=== PATIENT | female | born 1965 | race American Indian/Alaskan Native ===

== ENCOUNTER 2018-08-21 20:45 | Emergency (ER) | payer MEDICARE ==
[2018-08-21 22:07] LABS: Hematocrit 44.2 % (30.3-42.9); Hemoglobin 15.3 gm/dl (10.1-14.3); Mean Corpuscular HGB Conc 35 % (30-34); Mean Corpuscular Volume 85 fl (79-97); Platelet Count 264 K/mm3 (140-440); Red Cell Distribution Width 14.2 % (13.2-15.2)
[2018-08-21 22:34] LABS: Albumin 4.3 g/dL (3.9-5); Calcium 9.3 mg/dL (8.4-10.2)
[2018-08-21 22:56] LABS: Basophils % (Manual) 0 % (0.0-1.8); Total Cells Counted 100
[2018-08-21 22:57] LABS: Anisocytosis Few
--- NOTE | 2018-08-21 23:13 | XRay Report ---
FINAL REPORT EXAM: XR KNEE 3V LT HISTORY: fall TECHNIQUE: Three views of the left knee PRIORS: None. FINDINGS: The bones are normally aligned and mineralized. There is no evidence of acute fracture or subluxation . There is prominent patellar osteophyte formation and mild narrowing of the patellofemoral joint. Ther e is moderate narrowing of the medial joint with associated osteophyte formation. The lateral joint a ppears well preserved. The soft tissues are unremarkable. IMPRESSION: 1. No evidence of acute fracture or subluxation 2. Osteoarthrosis of the patellofemoral and medial joints
--- NOTE | 2018-08-21 23:56 | Emergency Department Report ---
ED General Adult HPI - General Chief complaint: Abdominal Pain Stated complaint: ABDOMINAL PAIN Time Seen by Provider: 08/21/18 23:55 Source: patient Mode of arrival: Ambulatory Limitations: No Limitations - History of Present Illness Initial comments: 52 y.o. female with history of schizophrenia, bipolar disorder, anxiety, and PTSD presents with a complaint of abdominal pain. Patient also complains of nausea and vomiting. Patient states she has not had a bowel movement in 2 weeks. Patient denies any blood in the stool. Patient denies any fever. Patient complains of abdominal cramping. Patient states he is taken no mass or abdominal pain. Persisted last episode of vomiting was 7 PM. Patient denies any hematemesis. Patient also complains of left knee pain stating that she had a fall in injured her knee while in the waiting room. - Related Data Previous Rx's Medication Instructions Recorded Last Taken Type Gabapentin [Neurontin] 600 mg PO TID #90 tablet 08/22/18 Unknown Rx Ondansetron (Nf) [Zofran TAB] 4 mg PO Q8HR PRN #20 tablet 08/22/18 Unknown Rx levETIRAcetam [Keppra TAB] 1,500 mg PO BID #60 tablet 08/22/18 Unknown Rx traMADol [Ultram] 50 mg PO Q6HR PRN #20 tablet 08/22/18 Unknown Rx Allergies Allergy/AdvReac Type Severity Reaction Status Date / Time morphine Allergy Anaphylaxis Verified 08/21/18 21:45 ED Review of Systems ROS: Stated complaint: ABDOMINAL PAIN Other details as noted in HPI Constitutional: denies: chills, fever Eyes: denies: eye pain, eye discharge, vision change ENT: denies: ear pain, throat pain Respiratory: denies: cough, shortness of breath, wheezing Cardiovascular: denies: chest pain, palpitations Endocrine: no symptoms reported Gastrointestinal: abdominal pain, nausea, vomiting. denies: diarrhea Genitourinary: denies: urgency, dysuria, discharge Musculoskeletal: denies: back pain, joint swelling, arthralgia Skin: denies: rash, lesions Neurological: headache. denies: weakness, paresthesias Psychiatric: denies: anxiety, depression Hematological/Lymphatic: denies: easy bleeding, easy bruising ED Past Medical Hx - Past Medical History Hx Diabetes: Yes Hx Seizures: Yes Hx Psychiatric Treatment: Yes (schizo, bipolar, anxity, PTSD, depression) Additional medical history: Neuropathy - Surgical History Past Surgical History?: No - Social History Smoking Status: Heavy Tobacco Smoker - Medications Home Medications: Home Medications Medication Instructions Recorded Confirmed Last Taken Type Gabapentin [Neurontin] 600 mg PO TID #90 tablet 08/22/18 Unknown Rx Ondansetron (Nf) [Zofran TAB] 4 mg PO Q8HR PRN #20 tablet 08/22/18 Unknown Rx levETIRAcetam [Keppra TAB] 1,500 mg PO BID #60 tablet 08/22/18 Unknown Rx traMADol [Ultram] 50 mg PO Q6HR PRN #20 tablet 08/22/18 Unknown Rx ED Physical Exam - General Limitations: No Limitations General appearance: alert, other (minimal distress; uncomfortable) - Head Head exam: Present: atraumatic, normocephalic - Eye Eye exam: Present: normal appearance - ENT ENT exam: Present: mucous membranes moist - Neck Neck exam: Present: normal inspection - Respiratory Respiratory exam: Present: normal lung sounds bilaterally. Absent: respiratory distress - Cardiovascular Cardiovascular Exam: Present: regular rate, normal rhythm. Absent: systolic murmur, diastolic murmur, rubs, gallop - GI/Abdominal GI/Abdominal exam: Present: soft, normal bowel sounds, other (tender diffusely in abdomen). Absent: guarding, rebound - Extremities Exam Extremities exam: Present: normal inspection, other (tender to palpation of right knee with full ROM; no stepoff deformity; No erythema or ecchymosis) - Back Exam Back exam: Present: normal inspection - Neurological Exam Neurological exam: Present: alert, oriented X3 - Psychiatric Psychiatric exam: Present: normal affect, normal mood - Skin Skin exam: Present: warm, dry, intact, normal color. Absent: rash ED Course Vital Signs 08/21/18 08/21/18 08/22/18 21:32 21:39 00:00 Temperature 99.0 F 99 F Pulse Rate 105 H 105 H 102 H Respiratory 16 16 25 H Rate Blood Pressure 135/78 135/78 121/79 Blood Pressure [Left] O2 Sat by Pulse 100 99 100 Oximetry 08/22/18 08/22/18 00:03 01:00 Temperature 98.3 F Pulse Rate 105 H 102 H Respiratory 17 25 H Rate Blood Pressure 124/88 Blood Pressure 121/79 [Left] O2 Sat by Pulse 100 Oximetry ED Medical Decision Making - Lab Data Result diagrams: 08/21/18 21:50 08/21/18 21:50 - Medical Decision Making Patient received Ultram for pain while in the ER. Patient received Zofran therapy as well as [place] therapy and tolerated this well without complication. Patient's pain improved and CT shows no acute pathology. Patient to be discharged to follow up with PCP. - Differential Diagnosis Bowel obstruction; UTI; Dehydration; Anemia; Critical care attestation.: If time is entered above; I have spent that time in minutes in the direct care of this critically ill patient, excluding procedure time. ED Disposition Clinical Impression: Abdominal pain, Knee contusion Disposition: TO HOME OR SELFCARE Is pt being admited?: No Does the pt Need Aspirin: No Condition: Stable Instructions: Abdominal Pain (ED), Knee Pain (ED) Prescriptions: Gabapentin [Neurontin] 600 mg PO TID #90 tablet levETIRAcetam [Keppra TAB] 1,500 mg PO BID #60 tablet Ondansetron (Nf) [Zofran TAB] 4 mg PO Q8HR PRN #20 tablet PRN Reason: vomiting traMADol [Ultram] 50 mg PO Q6HR PRN #20 tablet PRN Reason: Pain
[2018-08-22] LABS: Bilirubin,Urine NEG (Negative); Blood,Urine NEG (Negative); Color,Urine Straw (Yellow); Mucus,Urine FEW /HPF; Protein,Urine <15 mg/dL mg/dL (Negative); RBC,Urine < 1.0 /HPF (0.0-6.0); Urobilinogen,Urine < 2.0 mg/dL (<2.0); WBC,Urine < 1.0 /HPF (0.0-6.0)
[2018-08-22] MEDS ORDERED: ULTRAM PO ONE ×2 (00:50→00:59)
[2018-08-22] MEDS ORDERED: NACL 0.9% 1000 ML 1,000 ML IV ONE (00:51)
[2018-08-22 01:01] VITALS: BP 124/88
[2018-08-22] MEDS ORDERED: PERCOCET 5/325 PO STA (01:56)
[2018-08-22] MEDS ORDERED: ZOFRAN IV ONE (01:57)
[2018-08-22] MEDS ORDERED: ZOFRAN ONE (02:00)
--- NOTE | 2018-08-22 02:05 | Cat Scan Report ---
FINAL REPORT PROCEDURE: CT ABDOMEN PELVIS WO CON TECHNIQUE: Computerized axial tomography of the abdomen and pelvis was performed without intravenous contrast. This study is performed without intravascular contrast material and its sensitivity for ab dominal and pelvic pathology, including neoplasms, inflammation, abscess, free fluid, thrombosis, art erial dissection and infarction, is reduced compared with a contrast enhanced study. HISTORY: abdominal pain COMPARISON: No prior studies are available for comparison. FINDINGS: Visualized lower thorax: No significant abnormality. Liver: Normal size and attenuation. Spleen: Normal size and attenuation. Gallbladder and biliary system: Normal. Pancreas: Normal. Adrenals: Normal. Kidneys: There are no kidney stones or ureteral stones. There is no hydronephrosis.. GI tract: There is no bowel obstruction, colitis or enteritis. The appendix is normal.. Lymph nodes and mesentery: Normal. Vasculature: Normal. Bladder: Normal. Reproductive organs: There are calcified uterine fibroids.. Peritoneum: There is no ascites or free air, abscess or adenopathy.. Musculoskeletal structures: No significant abnormality. Other: None. IMPRESSION: There are no kidney stones or ureteral stones. There is no hydronephrosis.. There is no bowel obstruction, colitis or enteritis. The appendix is normal.. There are calcified uterine fibroids.. There is no ascites or free air, abscess or adenopathy.. .
[2018-08-22] MEDS ORDERED: PERCOCET 5/325 PO ONE (02:26)
[2018-08-22] MEDS ORDERED: PERCOCET 5/325 ONE (05:23)
[2018-08-22] MEDS ORDERED: ULTRAM ONE (05:23)
== END 2018-08-22 03:12 | disposition home or self-care (01) ==
LOC: ED 20:45
DX: S80.02XA Contusion of left knee, initial encounter (principal); R10.9 Unspecified abdominal pain; R11.2 Nausea with vomiting, unspecified; I10 Essential (primary) hypertension; F20.9 Schizophrenia, unspecified; F41.9 Anxiety disorder, unspecified; F43.10 Post-traumatic stress disorder, unspecified; F32.9 Major depressive disorder, single episode, unspecified; F17.200 Nicotine dependence, unspecified, uncomplicated; Z88.6 Allergy status to analgesic agent; W19.XXXA Unspecified fall, initial encounter; Y93.89 Activity, other specified; Y92.89 Other specified places as the place of occurrence of the external cause; Y99.8 Other external cause status
CPT/HCPCS: 36415; 73562; 74176; 80053; 81001; 82962; 85007; 85025; 87086; 96361; 96374; 99284; J2405; J7030

== ENCOUNTER 2019-07-06 17:26 | Emergency (ER) | payer MEDICARE ==
[2019-07-06] MEDS ORDERED: NITROGLYCERIN 0.4 MG TAB SUBL SL ONE (17:42)
[2019-07-06] MEDS ORDERED: ASPIRIN 81 MG TAB CHEW PO ONE (17:42)
[2019-07-06 18:10] LABS: Basophils # (Auto) 0.1 K/mm3 (0.0-0.1); Basophils % (Auto) 0.7 % (0.0-1.8); Eosinophils # (Auto) 0.1 K/mm3 (0.0-0.4); Eosinophils % (Auto) 1.6 % (0.0-4.3); Hematocrit 44.3 % (30.3-42.9); Hemoglobin 14.7 gm/dl (10.1-14.3); Lymphocytes # (Auto) 4.1 K/mm3 (1.2-5.4); Lymphocytes % (Auto) 45.9 % (13.4-35.0); Mean Corpuscular HGB Conc 33 % (30-34); Mean Corpuscular Volume 81 fl (79-97); Monocytes # (Auto) 0.6 K/mm3 (0.0-0.8); Monocytes % (Auto) 6.9 % (0.0-7.3); Platelet Count 273 K/mm3 (140-440); Red Blood Count 5.45 M/mm3 (3.65-5.03); Red Cell Distribution Width 15.8 % (13.2-15.2)
--- NOTE | 2019-07-06 18:12 | XRay Report ---
CHEST 1 VIEW INDICATION / CLINICAL INFORMATION: Chest Pain. COMPARISON: Chest radiograph 01/21/2017 FINDINGS: SUPPORT DEVICES: None. HEART / MEDIASTINUM: No significant abnormality. LUNGS / PLEURA: No significant pulmonary or pleural abnormality. No pneumothorax. IMPRESSION: 1. No acute finding. Signer Name: Fawad Mendoza MD Signed: 07/06/2019 6:07 PM Workstation Name: [id number]
[2019-07-06] MEDS ORDERED: ZIPRASIDONE MESYLATE 20 MG VIAL IM ONE (18:42)
[2019-07-06] MEDS ORDERED: HALOPERIDOL LACTATE 5 MG/1 ML INJ ONE (18:45)
[2019-07-06 18:59] LABS: Alanine Aminotransferase 7 units/L (7-56); Albumin 3.6 g/dL (3.9-5); BUN/Creatinine Ratio 16; Blood Urea Nitrogen 14 mg/dL (7-17); Calcium 9.7 mg/dL (8.4-10.2); Hemolysis Index 29
[2019-07-06 19:42] LABS: Bilirubin,Urine NEG (Negative); Blood,Urine NEG (Negative); Color,Urine Yellow (Yellow); Hyaline Casts,Urine 1 /LPF; Mucus,Urine FEW /HPF; Protein,Urine <15 mg/dL mg/dL (Negative)
[2019-07-06 19:48] LABS: Amphetamine Screen,Urine PRESUMPTIVE NEGATIVE; Benzodiazepines Screen,Urine PRESUMPTIVE NEGATIVE; Cannabinoid Screen,Urine PRESUMPTIVE NEGATIVE; Cocaine Screen,Urine PRESUMPTIVE NEGATIVE; Methadone Screen,Urine PRESUMPTIVE NEGATIVE; Opiate Screen,Urine PRESUMPTIVE NEGATIVE
[2019-07-06] MEDS ORDERED: SODIUM CHLORIDE 0.9% 1000 ML 1,000 ML IV ONE ×2 (22:27)
--- NOTE | 2019-07-06 22:28 | Emergency Department Report ---
<SASHA GIRALDO - Last Filed: 07/06/19 22:51> ED Psych HPI - General Chief Complaint: Chest Pain Stated Complaint: CP/DIZZY Time Seen by Provider: 07/06/19 17:41 Source: patient Mode of arrival: Ambulatory - History of Present Illness Initial Comments: Mrs. Lima is a 53 yo female with hx of schizophrenia, PTSD, seizure, CVA who presents with chest pain generalized weakness today. She became ill at the triage desk. Rushed back to the ED. She had difficulty speaking at that time. ONly stated "stroke" and "seizure". After being reassured that she was stable, Mrs. Saha told staff members "Just let me go. I am going to jump in front of a train. If I leave, I am going to kill myself." She, then, in very frightened manner state "there is a man there. Do not let him hurt me." lives with daughter but does not want her to know where she is MD Complaint: suicidal ideation, other (auditory hallucinations) -: Sudden, This evening Associated Psychiatric Symptoms: suicidal ideation, auditory hallucinations History of same: Yes Quality: constant Improves With: none Worsens With: none Context: other (unknown) Associated Symptoms: headache If Self Harm: has plan - Related Data Previous Rx's Medication Instructions Recorded Last Taken Type Gabapentin [Neurontin] 600 mg PO TID #90 tablet 08/22/18 Unknown Rx Ondansetron (Nf) [Zofran TAB] 4 mg PO Q8HR PRN #20 tablet 08/22/18 Unknown Rx levETIRAcetam [Keppra TAB] 1,500 mg PO BID #60 tablet 08/22/18 Unknown Rx traMADoL [Ultram] 50 mg PO Q6HR PRN #20 tablet 08/22/18 Unknown Rx Allergies Allergy/AdvReac Type Severity Reaction Status Date / Time morphine Allergy Anaphylaxis Verified 08/21/18 21:45 ED Review of Systems Comment: All other systems reviewed and negative Constitutional: malaise. denies: fever Respiratory: denies: shortness of breath Cardiovascular: chest pain Gastrointestinal: denies: abdominal pain Neurological: denies: headache, numbness, paresthesias, abnormal gait, vertigo ED Past Medical Hx - Past Medical History Previous Medical History?: Yes Hx Diabetes: Yes Hx Seizures: Yes Hx Psychiatric Treatment: Yes (schizo, bipolar, anxity, PTSD, depression) Additional medical history: Neuropathy - Surgical History Past Surgical History?: No - Social History Smoking Status: Current Every Day Smoker Substance Use Type: None - Medications Home Medications: Home Medications Medication Instructions Recorded Confirmed Last Taken Type Gabapentin [Neurontin] 600 mg PO TID #90 tablet 08/22/18 Unknown Rx Ondansetron (Nf) [Zofran TAB] 4 mg PO Q8HR PRN #20 tablet 08/22/18 Unknown Rx levETIRAcetam [Keppra TAB] 1,500 mg PO BID #60 tablet 08/22/18 Unknown Rx traMADoL [Ultram] 50 mg PO Q6HR PRN #20 tablet 08/22/18 Unknown Rx ED Physical Exam - General Limitations: Physical Limitation General appearance: alert, in distress (appears anxious, scared, running away from person not in room) - Head Head exam: Present: atraumatic, normocephalic - Eye Eye exam: Present: normal appearance. Absent: scleral icterus, conjunctival injection - ENT ENT exam: Present: mucous membranes moist - Neck Neck exam: Present: normal inspection, full ROM - Respiratory Respiratory exam: Present: normal lung sounds bilaterally. Absent: respiratory distress, wheezes, rales, rhonchi - Cardiovascular Cardiovascular Exam: Present: regular rate, normal rhythm, normal heart sounds. Absent: systolic murmur, diastolic murmur, rubs, gallop - GI/Abdominal GI/Abdominal exam: Present: soft, normal bowel sounds. Absent: distended, tenderness, guarding, rebound - Extremities Exam Extremities exam: Present: normal inspection - Back Exam Back exam: Present: normal inspection - Neurological Exam Neurological exam: Present: alert, oriented X3 - Psychiatric Psychiatric exam: Present: depressed, agitated, suicidal ideation - Skin Skin exam: Present: warm, dry, intact, normal color. Absent: rash ED Medical Decision Making - Lab Data Result diagrams: 07/06/19 17:48 07/06/19 18:15 Laboratory Results - last 24 hr 07/06/19 07/06/19 07/06/19 17:48 17:48 18:15 WBC 9.0 RBC 5.45 H Hgb 14.7 H Hct 44.3 H MCV 81 MCH 27 L MCHC 33 RDW 15.8 H Plt Count 273 Lymph % (Auto) 45.9 H Mccone % (Auto) 6.9 Eos % (Auto) 1.6 Baso % (Auto) 0.7 Lymph # 4.1 Mccone # 0.6 Eos # 0.1 Baso # 0.1 Seg Neutrophils % 44.9 Seg Neutrophils # 4.0 PT 13.1 INR 1.00 APTT 24.0 L D-Dimer 177.92 Sodium 135 L Potassium 4.5 Chloride 99.9 Carbon Dioxide 16 L Anion Gap 24 BUN 14 Creatinine 0.9 Estimated GFR > 60 BUN/Creatinine Ratio 16 Glucose 333 H Calcium 9.7 Total Bilirubin 0.40 AST 13 ALT 7 Alkaline Phosphatase 92 Troponin T < 0.010 Total Protein 7.2 Albumin 3.6 L Albumin/Globulin Ratio 1.0 Urine Color Urine Turbidity Urine pH Ur Specific [place] Urine Protein Urine Glucose (UA) Urine Ketones Urine Blood Urine Nitrite Urine Bilirubin Urine Urobilinogen Ur Leukocyte Esterase Urine WBC (Auto) Urine RBC (Auto) U Epithel Cells (Auto) Hyaline Casts Urine Mucus Urine Opiates Screen Urine Methadone Screen Ur Barbiturates Screen Ur Phencyclidine Scrn Ur Amphetamines Screen U Benzodiazepines Scrn Urine Cocaine Screen U Marijuana (THC) Screen Drugs of Abuse Note 07/06/19 07/06/19 19:25 19:25 WBC RBC Hgb Hct MCV MCH MCHC RDW Plt Count Lymph % (Auto) Mccone % (Auto) Eos % (Auto) Baso % (Auto) Lymph # Mccone # Eos # Baso # Seg Neutrophils % Seg Neutrophils # PT INR APTT D-Dimer Sodium Potassium Chloride Carbon Dioxide Anion Gap BUN Creatinine Estimated GFR BUN/Creatinine Ratio Glucose Calcium Total Bilirubin AST ALT Alkaline Phosphatase Troponin T Total Protein Albumin Albumin/Globulin Ratio Urine Color Yellow Urine Turbidity Slightly-cloudy Urine pH 7.0 Ur Specific [place] 1.013 Urine Protein <15 mg/dl Urine Glucose (UA) >=500 Urine Ketones Tr Urine Blood Neg Urine Nitrite Neg Urine Bilirubin Neg Urine Urobilinogen 2.0 Ur Leukocyte Esterase Neg Urine WBC (Auto) 2.0 Urine RBC (Auto) 3.0 U Epithel Cells (Auto) 14.0 H Hyaline Casts 1 Urine Mucus Few Urine Opiates Screen Presumptive negative Urine Methadone Screen Presumptive negative Ur Barbiturates Screen Presumptive negative Ur Phencyclidine Scrn Presumptive negative Ur Amphetamines Screen Presumptive negative U Benzodiazepines Scrn Presumptive negative Urine Cocaine Screen Presumptive negative U Marijuana (THC) Screen Presumptive negative Drugs of Abuse Note Disclamer - EKG Data 07/06/19 22:40 EKG obtained 1736 1736 Sinus tachycardia rate 120 beats a minute normal axis normal intervals poor R-wave progression in the anterior leads 07/06/19 22:51 Second EKG obtained 1751 Tachycardia rate 110 beats a minute normal axis no ST-T wave changes compared to first EKG - Radiology Data Radiology results: report reviewed cxr:NAP - Medical Decision Making Mrs. Saha initially presents with chest pain. During her evaluation, she ex pressed suicidal intention with repeated intention to jump in front of a pain. Her behavior became to escalate. She had auditiory and visual hallucinations, including a man in the room trying to harm her. She required chemical restraint. After Geodon injection, she was calm, cooperative and insightful. She did not have any physical complaints. I have reviewed labs. She is medically clear for psychiatric care. normal troponin x 2, normal d-dimer. Hyperglycemia addressed with lantus SQ QHS. She did confirm that she has hx of diabetes mellitus. Placed on 1013 involuntary hold. Awaiting treatment recommendations from our psychiatric team. From the presentation, I do not suspect TIA or seizure. AMI ruled out with w/u performed in the ED. Critical Care Time: Yes Critical care attestation.: 40 minutes of critical care time excluding procedures were used use in the care of the patient. I came to the bedside immediately. Patient required multiple interventions and reassessments. ED Disposition Clinical Impression: Suicidal ideation Disposition: [id number]/TX-[id number] ANOTHER TYPE [facility] Condition: Stable Referrals: PRIMARY CARE, [Primary Care Provider] - 3-5 Days <HILARIA KATZ - Last Filed: 07/07/19 11:17> ED Review of Systems ROS: Stated complaint: CP/DIZZY Other details as noted in HPI ED Course Vital Signs 07/06/19 07/06/19 07/06/19 17:59 18:17 20:58 Temperature 98.5 F Pulse Rate 111 H 113 H Respiratory 30 H 18 Rate Blood Pressure 130/78 Blood Pressure 152/103 [Right] O2 Sat by Pulse 100 Oximetry 07/07/19 01:30 Temperature 97.9 F Pulse Rate 100 H Respiratory 18 Rate Blood Pressure Blood Pressure 139/70 [Right] O2 Sat by Pulse 99 Oximetry ED Medical Decision Making - Lab Data Result diagrams: 07/06/19 17:48 07/06/19 18:15 - Medical Decision Making She will be discharged to the [facility] psychiatric unit Critical care attestation.: If time is entered above; I have spent that time in minutes in the direct care of this critically ill patient, excluding procedure time. ED Disposition Is pt being admited?: No Does the pt Need Aspirin: No Time of Disposition: 11:16
[2019-07-06] MEDS ORDERED: INSULIN GLARGINE 100 UNITS/ML SUB-Q SCH (22:36)
[2019-07-07 12:18] VITALS: BP 135/70
== END 2019-07-07 11:35 | disposition other institution (70) ==
LOC: ED 17:26 → EEVIPCON 17:26 → ED 07-07 11:35
DX: R45.851 Suicidal ideations (principal); E11.9 Type 2 diabetes mellitus without complications; F20.9 Schizophrenia, unspecified; F31.9 Bipolar disorder, unspecified; F41.9 Anxiety disorder, unspecified; F17.200 Nicotine dependence, unspecified, uncomplicated; Z79.899 Other long term (current) drug therapy; Z88.6 Allergy status to analgesic agent
CPT/HCPCS: 36415; 71045; 80053; 80307; 81001; 82962; 84484; 85025; 85379; 85610; 85730; 93005; 93010; 96372; 99291; J3486; J1630; J1815

== ENCOUNTER 2019-07-07 10:09 | Inpatient (IN) | payer MEDICARE ==
[2019-07-07] MEDS ORDERED: TIZANIDINE HCL 4 MG PO PRN (10:48)
[2019-07-07] MEDS ORDERED: ALBUTEROL 2.5 MG/3 ML NEBU IH PRN (10:48)
[2019-07-07] MEDS ORDERED: NITROGLYCERIN 0.4 MG TAB SUBL SL SCH (11:00)
[2019-07-07] MEDS ORDERED: tiZANidine TAB 4 MG TAB PO PRN (13:05)
[2019-07-07] MEDS ORDERED: CARBIDOPA PO SCH (14:00)
[2019-07-07] MEDS ORDERED: LEVODOPA PO SCH (14:00)
[2019-07-07 14:33] LABS: Basophils % (Auto) 0.8 % (0.0-1.8); Eosinophils # (Auto) 0.1 K/mm3 (0.0-0.4); Eosinophils % (Auto) 2.1 % (0.0-4.3); Hemoglobin 13.6 gm/dl (10.1-14.3); Lymphocytes # (Auto) 2.5 K/mm3 (1.2-5.4); Lymphocytes % (Auto) 44.3 % (13.4-35.0); Mean Corpuscular HGB Conc 33 % (30-34); Mean Corpuscular Volume 83 fl (79-97); Monocytes # (Auto) 0.4 K/mm3 (0.0-0.8); Monocytes % (Auto) 7.6 % (0.0-7.3); Platelet Count 236 K/mm3 (140-440); Red Blood Count 5.04 M/mm3 (3.65-5.03); Red Cell Distribution Width 16.4 % (13.2-15.2)
[2019-07-07 14:44] LABS: Alanine Aminotransferase 7 units/L (7-56); Albumin 3.8 g/dL (3.9-5); BUN/Creatinine Ratio 22; Blood Urea Nitrogen 20 mg/dL (7-17); Calcium 9.3 mg/dL (8.4-10.2); Chol/HDL Ratio 4.93 %; HDL Cholesterol 45 mg/dL (40-59); Hemolysis Index 11; LDL Cholesterol,Direct 161 mg/dL (50-130)
[2019-07-07] MEDS ORDERED: INSULIN LISPRO 100 UNIT/ML SUB-Q ONE (15:41)
[2019-07-07] MEDS: GABAPENTIN 300 MG CAP PO SCH ×2 (19:02→21:32)
[2019-07-07] MEDS: INSULIN LISPRO 100 UNIT/ML SUB-Q SCH ×3 (19:33→23:45)
[2019-07-07] MEDS: levETIRAcetam 500 MG TAB PO SCH (21:32)
[2019-07-07] MEDS: FAMOTIDINE 20 MG TAB PO SCH (21:32)
[2019-07-07] MEDS ORDERED: LISINOPRIL 40 MG TAB PO SCH (22:00)
[2019-07-07] MEDS ORDERED: NON-FORMULARY EACH (Levetiracetam [Keppra Tab] 1,000 MG) PO SCH (22:00)
[2019-07-07] MEDS ORDERED: DETEMIR SUB-Q SCH (22:00)
[2019-07-07] MEDS ORDERED: INSULIN GLARGINE 100 UNITS/ML SUB-Q SCH (22:00)
--- NOTE | 2019-07-08 07:15 | History and Physical Report ---
GP History & Physical - History of Present Illness Date of admission: 07/07/19 Date of Examination: 07/08/19 Reason for Admission: Severe anxiety/depression History of Present Illness: The patient is 53 year old , disabled female with history of schizophrenia, bipolar, depression, PTSD, and anxiety NURSE NOTES. Patient arrived onto unit via w/c accompanied by 1 nurse and 1 security door installer at 1221. legal status: 1013. per nurse to nurse, patient arrived to ED confused and diaphoresis. patient did not know where she was, c/o chest pain, and collapsed on the floor. patient has a psych hx of schizophrenia, bipolar, depression, PTSD, and anxiety. In my interview with the patient this morning, the patient stated that the reason she was here was because she did not want to live. The patient reported that she had swallowed 4 bottles of pills in an attempt at suicide. The patient stated that she has been without her meds since february, and she hears the voice of a man that follows her around, and tells her to go to the train tracks. She also stated that the she has nightmares every night and can not sleep. The patients stated that she wants to harm herself, but does not want to harm others. PAST PSYCHIATRIC HISTORY: Diagnoses: Schizophrenia, Bipolar, Depression PTSD Anxiety Suicide attempts or Self-harm behavior: 2 Suicide Attempts Prior psychiatric hospitalizations:4 Psychiatric Hospitalizations. Most recent [facility] 2017 Substance Abuse history: NONE Alcohol: NO Tobacco:Smokes 2 cigarettes 4 days a week. PAST MEDICAL /SURGICAL HISTORY: seizures DM Allergies: MORPHINE Family Psychiatric History None reported or documented SOCIAL HISTORY Marital Status: Single Living Arrangements: Lives with her daughter. Employment Status: Retired Access to guns/weapons: No, but stated she wanted one. Education: BS History of Abuse: NONE Legal History: NONE REVIEW OF SYSTEMS Constitutional: Negative for weight loss ENT: Negative for stridor Respiratory: Negative for cough or hemoptysis All other systems reviewed and are negative Legal Status: Voluntary Legal Status: Voluntary Patient Problems: Current Active Problems DVT prophylaxis (Acute) PTSD (post-traumatic stress disorder) (Acute) Schizoaffective disorder, depressive type (Acute) CAD (coronary artery disease) (Chronic) HLD (hyperlipidemia) (Chronic) HTN (hypertension) (Chronic) IDDM (insulin dependent diabetes mellitus) (Chronic) Parkinson disease (Chronic) Peripheral neuropathy (Chronic) Seizure disorder (Chronic) Reaction to Hospitalization: Accepting Medications and Allergies Allergies Allergy/AdvReac Type Severity Reaction Status Date / Time morphine Allergy Anaphylaxis Verified 07/07/19 12:44 Home Medications Medication Instructions Recorded Confirmed Last Taken Type Lisinopril [Zestril] 40 mg PO DAILY 01/17/17 01/17/17 01/15/17 History Nitroglycerin [Nitrostat] 0.4 mg SL Q5M 01/17/17 01/17/17 Unknown History Tizanidine HCl [Zanaflex] 4 mg PO TID PRN 01/17/17 01/17/17 01/15/17 History ALBUTEROL NEB's [Proventil 0.083% 2.5 mg IH Q6H PRN #100 nebu 01/21/17 Unknown Rx NEBS] Aspirin [Aspirin BABY CHEW TAB] 81 mg PO QDAY #100 tab.chew 01/21/17 Unknown Rx AtorvaSTATin [Lipitor] 20 mg PO QHS #30 tablet 01/21/17 Unknown Rx Carbidopa/Levodopa [Rytary ER 1 each PO TID #90 capsule.er 01/21/17 Unknown Rx 23.75 mg-95 mg Cap] Clopidogrel [Plavix] 75 mg PO QDAY #30 tablet 01/21/17 Unknown Rx Detemir (Nf) [Levemir (Nf)] 20 units SUB-Q QHS #5 pen 01/21/17 Unknown Rx FLUoxetine [PROzac] 20 mg PO QDAY #30 capsule 01/21/17 Unknown Rx Famotidine [Pepcid] 20 mg PO BID #60 tablet 01/21/17 Unknown Rx Gabapentin 300 mg PO Q8HR #90 capsule 01/21/17 Unknown Rx Lisinopril [Zestril TAB] 40 mg PO BID #30 tablet 01/21/17 Unknown Rx Metoprolol [Lopressor TAB] 12.5 mg PO DAILY #30 tablet 01/21/17 Unknown Rx Prednisone [predniSONE (Gregorio) ER 20 mg PO QDAY #8 tablet.dr 01/21/17 Unknown Rx TAB] carvediloL [Coreg] 12.5 mg PO BID #60 tablet 01/21/17 Unknown Rx levETIRAcetam [Keppra TAB] 1,000 mg PO BID #60 tablet 01/21/17 Unknown Rx levoFLOXacin [Levaquin] 750 mg PO QDAY #8 tablet 01/21/17 Unknown Rx metFORMIN [Glucophage] 500 mg PO BID #60 tablet 01/21/17 Unknown Rx Gabapentin [Neurontin] 600 mg PO TID #90 tablet 08/22/18 Unknown Rx Ondansetron (Nf) [Zofran TAB] 4 mg PO Q8HR PRN #20 tablet 08/22/18 Unknown Rx levETIRAcetam [Keppra TAB] 1,500 mg PO BID #60 tablet 08/22/18 Unknown Rx traMADoL [Ultram] 50 mg PO Q6HR PRN #20 tablet 08/22/18 Unknown Rx Active Meds: Active Medications Albuterol (Proventil) 2.5 mg IH Q6H PRN PRN Reason: Shortness Of Breath Aspirin (Baby Aspirin) 81 mg PO QDAY [facility] Atorvastatin Calcium (Lipitor) 20 mg PO QHS [facility] Last Admin: 07/07/19 21:32 Dose: 20 mg Documented by: Carvedilol (Coreg) 12.5 mg PO BID [facility] Clopidogrel Bisulfate (Plavix) 75 mg PO QDAY [facility] Famotidine (Pepcid) 20 mg PO BID [facility] Last Admin: 07/07/19 21:32 Dose: 20 mg Documented by: Fluoxetine HCl (Prozac) 20 mg PO QDAY [facility] Gabapentin (Gabapentin) 300 mg PO Q8HR [facility] Last Admin: 07/07/19 21:32 Dose: 300 mg Documented by: Insulin [facility] ([facility]us) [facility] Last Admin: 07/07/19 23:46 Dose: 20 units Documented by: Insulin Human Lispro (Humalog) 0 unit SUB-Q [facility]; Protocol Last Admin: 07/07/19 23:45 Dose: 8 unit Documented by: Levetiracetam (Keppra) 1,000 mg PO BID [facility] Last Admin: 07/07/19 21:32 Dose: 1,000 mg Documented by: Lisinopril (Zestril) 40 mg PO BID [facility] Metoprolol Tartrate (Metoprolol) 12.5 mg PO DAILY [facility] Miscellaneous Medication (Carbidopa/Levodopa [Rytary Er 23.75 Mg-95 Mg Cap]) 1 each PO TID [facility] Nicotine (Habitrol) 7 mg TD QDAY [facility] Nitroglycerin (Nitrostat) 0.4 mg SL Q5M [facility] Prednisone (Deltasone) 20 mg PO QDAY [facility] Tizanidine HCl (Zanaflex) 4 mg PO Q8H PRN PRN Reason: Muscle Spasm Results - Results Labs/Vitals: Laboratory Last Values WBC 5.7 K/mm3 (4.5-11.0) 07/07/19 13:39 RBC 5.04 M/mm3 (3.65-5.03) H 07/07/19 13:39 Hgb 13.6 gm/dl (10.1-14.3) 07/07/19 13:39 Hct 42.0 % (30.3-42.9) 07/07/19 13:39 MCV 83 fl (79-97) 07/07/19 13:39 MCH 27 pg (28-32) L 07/07/19 13:39 MCHC 33 % (30-34) 07/07/19 13:39 RDW 16.4 % (13.2-15.2) H 07/07/19 13:39 Plt Count 236 K/mm3 (140-440) 07/07/19 13:39 Lymph % (Auto) 44.3 % (13.4-35.0) H 07/07/19 13:39 [place] % (Auto) 7.6 % (0.0-7.3) H 07/07/19 13:39 Eos % (Auto) 2.1 % (0.0-4.3) 07/07/19 13:39 Baso % (Auto) 0.8 % (0.0-1.8) 07/07/19 13:39 Lymph # 2.5 K/mm3 (1.2-5.4) 07/07/19 13:39 [place] # 0.4 K/mm3 (0.0-0.8) 07/07/19 13:39 Eos # 0.1 K/mm3 (0.0-0.4) 07/07/19 13:39 Baso # 0.0 K/mm3 (0.0-0.1) 07/07/19 13:39 Seg Neutrophils % 45.2 % (40.0-70.0) 07/07/19 13:39 Seg Neutrophils # 2.6 K/mm3 (1.8-7.7) 07/07/19 13:39 Sodium 131 mmol/L (137-145) L 07/07/19 13:39 Potassium 3.9 mmol/L (3.6-5.0) 07/07/19 13:39 Chloride 93.2 mmol/L (98-107) L 07/07/19 13:39 Carbon Dioxide 23 mmol/L (22-30) D 07/07/19 13:39 Anion Gap 19 mmol/L 07/07/19 13:39 BUN 20 mg/dL (7-17) H 07/07/19 13:39 Creatinine 0.9 mg/dL (0.7-1.2) 07/07/19 13:39 Estimated GFR > 60 ml/min 07/07/19 13:39 BUN/Creatinine Ratio 22 % 07/07/19 13:39 Glucose 535 mg/dL (65-100) H* 07/07/19 13:39 POC Glucose 328 (70-105) H 07/07/19 19:48 Hemoglobin A1c 11.3 % (4-6) H 07/07/19 13:39 Calcium 9.3 mg/dL (8.4-10.2) 07/07/19 13:39 Total Bilirubin < 0.20 mg/dL (0.1-1.2) 07/07/19 13:39 AST 10 units/L (5-40) 07/07/19 13:39 ALT 7 units/L (7-56) 07/07/19 13:39 Alkaline Phosphatase 100 units/L (35-129) 07/07/19 13:39 Total Protein 7.1 g/dL (6.3-8.2) 07/07/19 13:39 Albumin 3.8 g/dL (3.9-5) L 07/07/19 13:39 Albumin/Globulin Ratio 1.2 % 07/07/19 13:39 Triglycerides 193 mg/dL (2-149) H 07/07/19 13:39 Cholesterol 222 mg/dL (50-199) H 07/07/19 13:39 LDL Cholesterol Direct 161 mg/dL (50-130) H 07/07/19 13:39 HDL Cholesterol 45 mg/dL (40-59) 07/07/19 13:39 Cholesterol/HDL Ratio 4.93 % 07/07/19 13:39 Last Vital Signs Temp 98.2 F 07/07/19 20:10 Pulse 84 07/07/19 20:10 Resp 17 07/07/19 20:10 BP 149/82 07/07/19 20:10 Pulse Ox 96 07/07/19 20:10 Physical Examination - Constitutional Vitals: Vital Signs Temp Pulse Resp BP Pulse Ox 98.2 F 84 17 149/82 96 07/07/19 20:10 07/07/19 20:10 07/07/19 20:10 07/07/19 20:10 07/07/19 20:10 Temperature -Last 24 Hours Temperature 98.2 F General appearance: Present: no acute distress, well-nourished - EENT Eyes: Present: PERRL, EOM intact ENT: hearing intact, clear oral mucosa - Neck Neck: Present: supple, normal ROM - Respiratory Respiratory effort: normal, labored Mental Status Exam - Vital signs Last Vital Signs Temp 98.2 F 07/07/19 20:10 Pulse 84 07/07/19 20:10 Resp 17 07/07/19 20:10 BP 149/82 07/07/19 20:10 Pulse Ox 96 07/07/19 20:10 - Exam Orientation: time, place, person Affect: depressed Mood: congruent with affect Thought Process: Intact Perceptions: auditory, command, hallucinations Speech: normal rate and pattern Concentration: focused Motor activity: normal Level of consciousness: alert Memory: Intact Sleep Symptoms: Difficulty Falling Asleep Interaction: cooperative Assessment and Plan - Psychiatric problem (1) Schizoaffective disorder, depressive type Current Visit: Yes Status: Acute plan to address problem: see below (2) PTSD (post-traumatic stress disorder) Current Visit: Yes Status: Acute plan to address problem: Due to the psychiatric conditions and treatment listed in the Assessment and Plan - the patient requires continued hospitalization. Will continue inpatient treatment to allow for medication adjustment and monitoring. Will continue q15 min safety checks. Will encourage the use of environmental modifications and non-pharmacologic ely roaches for the management of behavioral and psychological symptoms. Medication adjustment made today: Start Quetiapine 150mg bid for psychosis and increase Fluoxetine to 40mg qd for depression Will continue current psych medications Monitor for medication side effects. The patient will continue on medications for physical illnesses, and Hospitalist will closely monitor these Continue intensive physical and occupational therapies. Monitor patient's mood, sleep, appetite, and behavior closely. Encourage patient to participate in individual and group therapeutic sessions on the [place]. Will provide a safe and therapeutic environment for patient. Estimated length of stay 7 days Physician Certification - Certification Statement Physician Certification Statement: This is an acknowledgement statement that MARGARITA STRATTON is a 53 year old F who requires inpatient psychiatric admission for treatment which could reasonably be expected to improve the patient's condition for Schizoaffective disorder Estimated period of time patient will need to remain in the hospital: 7 days Plan for post-hospital care: out-patient care
--- NOTE | 2019-07-08 07:21 | Consultation ---
History of Present Illness - Reason for Consult Consult date: 07/07/19 Medical management Requesting physician: BERNA MENDIOLA - History of Present Illness atient arrived onto unit via w/c accompanied by 1 nurse and [address] at 1221. legal status: 1013. per nurse to nurse, patient arrived to ED confused and diaphoresis. patient did not know where she was, c/o chest pain, and collapsed on the floor. patient has a psych hx of schizophrenia, bipolar, depres noemi, PTSD, and anxiety. medical hx of seizures (last one unknown) , DM, and neuropathy. surgical hx for stent insertion. patient reports 5 strokes, 5 heart attacks, and been in a diabetic coma x's 3. she's received flu vaccination last month. personal items inventoried and a bag was sent down to the safe. patiented oriented to unit and unit policy. During my exam patient was calm .Poor Historian.Unable to give much history. I Past History Past Medical History: CAD, diabetes, hypertension, hyperlipidemia, seizures, other (parkinsonism) Past Surgical History: No surgical history Social history: full code Family history: hypertension Medications and Allergies Allergies Allergy/AdvReac Type Severity Reaction Status Date / Time morphine Allergy Anaphylaxis Verified 07/07/19 12:44 Home Medications Medication Instructions Recorded Confirmed Last Taken Type Lisinopril [Zestril] 40 mg PO DAILY 01/17/17 01/17/17 01/15/17 History Nitroglycerin [Nitrostat] 0.4 mg SL Q5M 01/17/17 01/17/17 Unknown History Tizanidine HCl [Zanaflex] 4 mg PO TID PRN 01/17/17 01/17/17 01/15/17 History ALBUTEROL NEB's [Proventil 0.083% 2.5 mg IH Q6H PRN #100 nebu 01/21/17 Unknown Rx NEBS] Aspirin [Aspirin BABY CHEW TAB] 81 mg PO QDAY #100 tab.chew 01/21/17 Unknown Rx AtorvaSTATin [Lipitor] 20 mg PO QHS #30 tablet 01/21/17 Unknown Rx Carbidopa/Levodopa [Rytary ER 1 each PO TID #90 capsule.er 01/21/17 Unknown Rx 23.75 mg-95 mg Cap] Clopidogrel [Plavix] 75 mg PO QDAY #30 tablet 01/21/17 Unknown Rx Detemir (Nf) [Levemir (Nf)] 20 units SUB-Q QHS #5 pen 01/21/17 Unknown Rx FLUoxetine [PROzac] 20 mg PO QDAY #30 capsule 01/21/17 Unknown Rx Famotidine [Pepcid] 20 mg PO BID #60 tablet 01/21/17 Unknown Rx Gabapentin 300 mg PO Q8HR #90 capsule 01/21/17 Unknown Rx Lisinopril [Zestril TAB] 40 mg PO BID #30 tablet 01/21/17 Unknown Rx Metoprolol [Lopressor TAB] 12.5 mg PO DAILY #30 tablet 01/21/17 Unknown Rx Prednisone [predniSONE (Gregorio) ER 20 mg PO QDAY #8 tablet. 01/21/17 Unknown Rx TAB] carvediloL [Coreg] 12.5 mg PO BID #60 tablet 01/21/17 Unknown Rx levETIRAcetam [Keppra TAB] 1,000 mg PO BID #60 tablet 01/21/17 Unknown Rx levoFLOXacin [Levaquin] 750 mg PO QDAY #8 tablet 01/21/17 Unknown Rx metFORMIN [Glucophage] 500 mg PO BID #60 tablet 01/21/17 Unknown Rx Gabapentin [Neurontin] 600 mg PO TID #90 tablet 08/22/18 Unknown Rx Ondansetron (Nf) [Zofran TAB] 4 mg PO Q8HR PRN #20 tablet 08/22/18 Unknown Rx levETIRAcetam [Keppra TAB] 1,500 mg PO BID #60 tablet 08/22/18 Unknown Rx traMADoL [Ultram] 50 mg PO Q6HR PRN #20 tablet 08/22/18 Unknown Rx Active Meds: Active Medications Albuterol (Proventil) 2.5 mg IH Q6H PRN PRN Reason: Shortness Of Breath Aspirin (Baby Aspirin) 81 mg PO QDAY [facility] Atorvastatin Calcium (Lipitor) 20 mg PO QHS [facility] Last Admin: 07/07/19 21:32 Dose: 20 mg Documented by: Carvedilol (Coreg) 12.5 mg PO BID [facility] Clopidogrel Bisulfate (Plavix) 75 mg PO QDAY [facility] Famotidine (Pepcid) 20 mg PO BID [facility] Last Admin: 07/07/19 21:32 Dose: 20 mg Documented by: Fluoxetine HCl (Prozac) 20 mg PO QDAY [facility] Gabapentin (Gabapentin) 300 mg PO Q8HR [facility] Last Admin: 07/07/19 21:32 Dose: 300 mg Documented by: Insulin Glargine (Lantus) 20 units SUB-Q QHS [facility] Last Admin: 07/07/19 23:46 Dose: 20 units Documented by: Insulin Human Lispro (Humalog) 0 unit SUB-Q [facility]; Protocol Last Admin: 07/07/19 23:45 Dose: 8 unit Documented by: Levetiracetam (Keppra) 1,000 mg PO BID [facility] Last Admin: 07/07/19 21:32 Dose: 1,000 mg Documented by: Lisinopril (Zestril) 40 mg PO BID [facility] Metoprolol Tartrate (Metoprolol) 12.5 mg PO DAILY [facility] Miscellaneous Medication (Carbidopa/Levodopa [Rytary Er 23.75 Mg-95 Mg Cap]) 1 each PO TID [facility] Nicotine (Habitrol) 7 mg TD QDAY [facility] Nitroglycerin (Nitrostat) 0.4 mg SL Q5M [facility] Prednisone (Deltasone) 20 mg PO QDAY [facility] Tizanidine HCl (Zanaflex) 4 mg PO Q8H PRN PRN Reason: Muscle Spasm Review of Systems All systems: negative Constitutional: no weight loss, no weight gain, no fever, no chills, no sweats, no night sweats Ears, nose, mouth and throat: no ear pain, no ear discharge, no tinnitis, no decreased hearing, no nose pain, no nasal congestion, no nasal discharge, no sinus pressure, no sinus pain Breasts: deferred Cardiovascular: no chest pain, no orthopnea, no palpitations, no rapid/irregular heart beat, no edema, no syncope Respiratory: no cough, no cough with sputum, no excessive sputum, no hemoptysis, no shortness of breath, no dyspnea on exertion Gastrointestinal: no abdominal pain, no nausea, no vomiting, no diarrhea, no constipation Genitourinary Female: no dysuria, no urinary frequency, no urgency Menstruation: ammenorrhea Rectal: no pain Musculoskeletal: no neck stiffness, no neck pain, no shooting arm pain, no arm numbness/tingling, no low back pain, no shooting leg pain, no leg numbness/tingling, no redness of joints Integumentary: no rash, no pruritis, no redness, no sores, no wounds, no jaundice, no boils, no blisters Neurological: no seizures, no syncope Psychiatric: no suicidal ideation Endocrine: no cold intolerance, no heat intolerance Hematologic/Lymphatic: no easy bruising, no easy bleeding Allergic/Immunologic: no urticaria, no allergic rhinitis, no wheezing Exam - Constitutional Vitals: Temp Pulse Resp BP Pulse Ox 98.2 F 84 17 149/82 96 07/07/19 20:10 07/07/19 20:10 07/07/19 20:10 07/07/19 20:10 07/07/19 20:10 General appearance: Present: no acute distress, well-nourished - EENT Eyes: Present: PERRL ENT: hearing intact, clear oral mucosa - Neck Neck: Present: supple, normal ROM - Respiratory Respiratory effort: normal Respiratory: bilateral: CTA - Cardiovascular Heart rate: 78 Rhythm: regular Heart Sounds: Present: S1 & S2. Absent: rub, click - Extremities Extremities: no ischemia, pulses intact, pulses symmetrical, No edema Peripheral Pulses: within normal limits - Abdominal General gastrointestinal: Present: soft, non-tender, non-distended, normal bowel sounds Female genitourinary: Present: normal - Rectal Rectal Exam: deferred - Integumentary Integumentary: Present: clear, warm, dry - Musculoskeletal Musculoskeletal: gait normal, strength equal bilaterally - Psychiatric Psychiatric: appropriate mood/affect, intact judgment & insight - Neurologic Neurologic: CNII-XII intact, moves all extremities - Allied Health Allied health notes reviewed: nursing, case management Results - Labs CBC & Chem 7: 07/07/19 13:39 07/07/19 13:39 Labs: Abnormal lab results 07/07/19 07/07/19 07/07/19 Range/Units 13:39 13:39 13:39 RBC 5.04 H (3.65-5.03) M/mm3 MCH 27 L (28-32) pg RDW 16.4 H (13.2-15.2) % Lymph % (Auto) 44.3 H (13.4-35.0) % [place] % (Auto) 7.6 H (0.0-7.3) % Sodium 131 L (137-145) mmol/L Chloride 93.2 L (98-107) mmol/L BUN 20 H (7-17) mg/dL Glucose 535 H* (65-100) mg/dL POC Glucose (70-105) Hemoglobin A1c 11.3 H (4-6) % Albumin 3.8 L (3.9-5) g/dL Triglycerides 193 H (2-149) mg/dL Cholesterol 222 H (50-199) mg/dL LDL Cholesterol Direct 161 H (50-130) mg/dL 07/07/19 Range/Units 19:48 RBC (3.65-5.03) M/mm3 MCH (28-32) pg RDW (13.2-15.2) % Lymph % (Auto) (13.4-35.0) % [place] % (Auto) (0.0-7.3) % Sodium (137-145) mmol/L Chloride (98-107) mmol/L BUN (7-17) mg/dL Glucose (65-100) mg/dL POC Glucose 328 H (70-105) Hemoglobin A1c (4-6) % Albumin (3.9-5) g/dL Triglycerides (2-149) mg/dL Cholesterol (50-199) mg/dL LDL Cholesterol Direct (50-130) mg/dL Short CBC 07/07/19 Range/Units 13:39 WBC 5.7 (4.5-11.0) K/mm3 Hgb 13.6 (10.1-14.3) gm/dl Hct 42.0 (30.3-42.9) % Plt Count 236 (140-440) K/mm3 BMP 07/07/19 13:39 Sodium 131 L Potassium 3.9 Chloride 93.2 L Carbon Dioxide 23 D BUN 20 H Creatinine 0.9 Glucose 535 H* Calcium 9.3 Liver Function 07/07/19 Range/Units 13:39 Total Bilirubin < 0.20 (0.1-1.2) mg/dL AST 10 (5-40) units/L ALT 7 (7-56) units/L Alkaline Phosphatase 100 (35-129) units/L Albumin 3.8 L (3.9-5) g/dL Assessment and Plan - Patient Problems (1) IDDM (insulin dependent diabetes mellitus) Current Visit: Yes Status: Chronic Plan to address problem: Uncontrolled Discontinued Lantus and Started on Novolin mix 70/30 25 units bid Also Accucheks achs and high dose sliding scale coverage A1c high in 11's indicating poor control over last few months. (2) HTN (hypertension) Current Visit: Yes Status: Chronic Qualifiers: Hypertension type: essential hypertension Qualified Code(s): I10 - Essential (primary) hypertension Plan to address problem: Cont antihypertensives (3) HLD (hyperlipidemia) Current Visit: Yes Status: Chronic Qualifiers: Hyperlipidemia type: mixed hyperlipidemia Qualified Code(s): E78.2 - Mixed hyperlipidemia Plan to address problem: Cont statins (4) Parkinson disease Current Visit: Yes Status: Chronic Plan to address problem: Cont Sinemet (5) CAD (coronary artery disease) Current Visit: Yes Status: Chronic Qualifiers: Coronary Disease-Associated Artery/Lesion type: [place] artery [place] vs. transplanted heart: kaw heart Associated angina: without angina Qualified Code(s): I25.10 - Atherosclerotic heart disease of [place] coronary artery without angina pectoris Plan to address problem: Cont Plavix (6) Seizure disorder Current Visit: Yes Status: Chronic Plan to address problem: Cont Keppra (7) Peripheral neuropathy Current Visit: Yes Status: Chronic Qualifiers: Peripheral neuropathy type: polyneuropathy, unspecified Qualified Code(s): G62.9 - Polyneuropathy, unspecified Plan to address problem: Cont Gabapentin (8) DVT prophylaxis Current Visit: Yes Status: Acute Plan to address problem: On Heparin and GI prophlaxis
[2019-07-08] MEDS ORDERED: traMADol 50 MG TAB PO PRN (08:00)
[2019-07-08] MEDS ORDERED: INSULIN GLARGINE 100 UNITS/ML SUB-Q SCH (10:00)
[2019-07-08] MEDS ORDERED: FLUoxetine 20 MG CAP PO SCH (10:00)
[2019-07-08] MEDS ORDERED: PREDNISONE 20 MG PO SCH (10:00)
[2019-07-08] MEDS: GABAPENTIN 300 MG CAP PO SCH ×3 (10:06→22:37)
[2019-07-08] MEDS: FAMOTIDINE 20 MG TAB PO SCH ×2 (10:07→22:38)
[2019-07-08] MEDS: levETIRAcetam 500 MG TAB PO SCH ×2 (10:07→22:24)
[2019-07-08] MEDS: CLOPIDOGREL 75 MG TAB PO SCH (10:07)
[2019-07-08] MEDS: ASPIRIN 81 MG TAB CHEW PO SCH (10:07)
[2019-07-08] MEDS: INSULIN NPH/REGULAR 70/30 INJ SUB-Q SCH ×2 (10:08→18:23)
[2019-07-08] MEDS: traMADol 50 MG TAB PO PRN ×2 (10:08→22:31)
[2019-07-08] MEDS ORDERED: ONDANSETRON 4 MG ODT TAB PO PRN (11:00)
[2019-07-08] MEDS ORDERED: NITROGLYCERIN 0.4 MG TAB SUBL SL PRN (11:38)
[2019-07-08] MEDS: carvediloL 12.5 MG TAB PO SCH ×3 (13:51→22:34)
[2019-07-08] MEDS: predniSONE 20 MG TAB PO SCH (13:52)
[2019-07-08] MEDS: INSULIN LISPRO 100 UNIT/ML SUB-Q SCH ×4 (13:53→22:16)
[2019-07-08] MEDS: NICOTINE 7 MG/24 HR PATCH TD SCH (13:55)
[2019-07-08] MEDS: METOPROLOL TARTRATE 25 MG TAB PO SCH (13:57)
[2019-07-08] MEDS: LISINOPRIL 40 MG TAB PO SCH (13:59)
[2019-07-08] MEDS: metFORMIN 500 MG TAB PO SCH ×2 (14:04→18:22)
[2019-07-08] MEDS ORDERED: QUEtiapine 50 MG, QUEtiapine 100 MG PO SCH (22:00)
[2019-07-08] MEDS ORDERED: QUEtiapine 100 MG TAB PO SCH (22:00)
[2019-07-08] MEDS: CARBIDOPA PO SCH (22:22)
[2019-07-08] MEDS: LEVODOPA PO SCH (22:22)
--- NOTE | 2019-07-09 07:17 | Progress Note ---
Subjective Date of service: 07/09/19 Principal diagnosis: Schizoaffective disorder Subjective Comment: NURSE NOTES: In my interview with the patient this morning, she the patient reports that she continues to experience distressing auditory hallucinations described as a male voice that tells her to harm herself. She wants to go back to taking her previous medications (Haldol, Vistaril, Zoloft and Trazodone) as she found them beneficial. Though she denies SI/HI, she does not feel safe being discharged home due to the voices. REVIEW OF SYSTEMS Constitutional: Negative for weight loss ENT: Negative for stridor Respiratory: Negative for cough or hemoptysis All other systems reviewed and are negative Legal Status: Voluntary Legal Status: Voluntary Patient Problems: Current Active Problems DVT prophylaxis (Acute) PTSD (post-traumatic stress disorder) (Acute) Schizoaffective disorder, depressive type (Acute) CAD (coronary artery disease) (Chronic) HLD (hyperlipidemia) (Chronic) HTN (hypertension) (Chronic) IDDM (insulin dependent diabetes mellitus) (Chronic) Parkinson disease (Chronic) Peripheral neuropathy (Chronic) Seizure disorder (Chronic) Reaction to Hospitalization: Accepting Physical Examination General appearance: Present: no acute distress, well-nourished - EENT Eyes: Present: PERRL, EOM intact ENT: hearing intact, clear oral mucosa - Neck Neck: Present: supple, normal ROM - Respiratory Respiratory effort: normal, labored Mental Status Exam Orientation: time, place, person Affect: depressed Mood: congruent with affect Thought Content: No si/hi Thought Process: Intact Perceptions: auditory, command, hallucinations Speech: normal rate and pattern Concentration: focused Motor activity: normal Level of consciousness: alert Memory: Intact Sleep Symptoms: Difficulty Falling Asleep Interaction: cooperative Assessment and Plan - Psychiatric problem (1) Schizoaffective disorder, depressive type Current Visit: Yes Status: Acute plan to address problem: see below (2) PTSD (post-traumatic stress disorder) Current Visit: Yes Status: Acute plan to address problem: Due to the psychiatric conditions and treatment listed in the Assessment and Plan - the patient requires continued hospitalization. Will continue inpatient treatment to allow for medication adjustment and monitoring. Will continue q15 min safety checks. Will encourage the use of environmental modifications and non-pharmacologic approaches for the management of behavioral and psychological symptoms. Medication adjustment made today: Discontinue Quetiapine and Fluoxetine and start Haldol, Zoloft per patient's request Will continue current psych medications Monitor for medication side effects. The patient will continue on medications for physical illnesses, and Hospitalist will closely monitor these Continue intensive physical and occupational therapies. Monitor patient's mood, sleep, appetite, and behavior closely. Encourage patient to participate in individual and group therapeutic sessions on the [facility]. Will provide a safe and therapeutic environment for patient. Estimated length of stay 7 days Assessment and Plan - Patient Problems (1) Schizoaffective disorder, depressive type Current Visit: Yes Status: Acute (2) PTSD (post-traumatic stress disorder) Current Visit: Yes Status: Acute Medications and Allergies Allergies Allergy/AdvReac Type Severity Reaction Status Date / Time morphine Allergy Anaphylaxis Verified 07/07/19 12:44 Home Medications Medication Instructions Recorded Confirmed Last Taken Type Lisinopril [Zestril] 40 mg PO DAILY 01/17/17 01/17/17 01/15/17 History Nitroglycerin [Nitrostat] 0.4 mg SL Q5M 01/17/17 01/17/17 Unknown History Tizanidine HCl [Zanaflex] 4 mg PO TID PRN 01/17/17 01/17/17 01/15/17 History ALBUTEROL NEB's [Proventil 0.083% 2.5 mg IH Q6H PRN #100 nebu 01/21/17 Unknown Rx NEBS] Aspirin [Aspirin BABY CHEW TAB] 81 mg PO QDAY #100 tab.chew 01/21/17 Unknown Rx AtorvaSTATin [Lipitor] 20 mg PO QHS #30 tablet 01/21/17 Unknown Rx Carbidopa/Levodopa [Rytary ER 1 each PO TID #90 capsule.er 01/21/17 Unknown Rx 23.75 mg-95 mg Cap] Clopidogrel [Plavix] 75 mg PO QDAY #30 tablet 01/21/17 Unknown Rx Detemir (Nf) [Levemir (Nf)] 20 units SUB-Q QHS #5 pen 01/21/17 Unknown Rx FLUoxetine [PROzac] 20 mg PO QDAY #30 capsule 01/21/17 Unknown Rx Famotidine [Pepcid] 20 mg PO BID #60 tablet 01/21/17 Unknown Rx Gabapentin 300 mg PO Q8HR #90 capsule 01/21/17 Unknown Rx Lisinopril [Zestril TAB] 40 mg PO BID #30 tablet 01/21/17 Unknown Rx Metoprolol [Lopressor TAB] 12.5 mg PO DAILY #30 tablet 01/21/17 Unknown Rx Prednisone [predniSONE (Gregorio) ER 20 mg PO QDAY #8 tablet. 01/21/17 Unknown Rx TAB] carvediloL [Coreg] 12.5 mg PO BID #60 tablet 01/21/17 Unknown Rx levETIRAcetam [Keppra TAB] 1,000 mg PO BID #60 tablet 01/21/17 Unknown Rx levoFLOXacin [Levaquin] 750 mg PO QDAY #8 tablet 01/21/17 Unknown Rx metFORMIN [Glucophage] 500 mg PO BID #60 tablet 01/21/17 Unknown Rx Gabapentin [Neurontin] 600 mg PO TID #90 tablet 08/22/18 Unknown Rx Ondansetron (Nf) [Zofran TAB] 4 mg PO Q8HR PRN #20 tablet 08/22/18 Unknown Rx levETIRAcetam [Keppra TAB] 1,500 mg PO BID #60 tablet 08/22/18 Unknown Rx traMADoL [Ultram] 50 mg PO Q6HR PRN #20 tablet 08/22/18 Unknown Rx Active Meds: Active Medications Albuterol (Proventil) 2.5 mg IH Q6H PRN PRN Reason: Shortness Of Breath Aspirin (Baby Aspirin) 81 mg PO QDAY [facility] Last Admin: 07/08/19 10:07 Dose: 81 mg Documented by: Atorvastatin Calcium (Lipitor) 20 mg PO QHS [facility] Last Admin: 07/08/19 22:37 Dose: 20 mg Documented by: Carbidopa/Levodopa (Sinemet Er) 1 each PO TID [facility] Last Admin: 07/08/19 22:22 Dose: 1 each Documented by: Carvedilol (Coreg) 12.5 mg PO BID [facility] Last Admin: 07/08/19 22:34 Dose: 12.5 mg Documented by: Clopidogrel Bisulfate (Plavix) 75 mg PO QDAY [facility] Last Admin: 07/08/19 10:07 Dose: 75 mg Documented by: Famotidine (Pepcid) 20 mg PO BID [facility] Last Admin: 07/08/19 22:38 Dose: 20 mg Documented by: Fluoxetine HCl (Prozac) 40 mg PO QDAY [facility] Gabapentin (Gabapentin) 300 mg PO Q8HR [facility] Last Admin: 07/08/19 22:37 Dose: 300 mg Documented by: Insulin Human Isoph/Insulin Regular (Humulin 70/30) 25 unit SUB-Q BIDDIAB [facility] Last Admin: 07/08/19 18:23 Dose: 25 unit Documented by: Insulin Human Lispro (Humalog) 0 unit SUB-Q ACHS [facility]; Protocol Last Admin: 07/08/19 22:16 Dose: 4 unit Documented by: Levetiracetam (Keppra) 1,000 mg PO BID [facility] Last Admin: 07/08/19 22:24 Dose: 1,000 mg Documented by: Lisinopril (Zestril) 40 mg PO DAILY [facility] Last Admin: 07/08/19 13:59 Dose: Not Given Documented by: Metformin HCl (Glucophage) 500 mg PO BIDDIAB [facility] Last Admin: 07/08/19 18:22 Dose: 500 mg Documented by: Metoprolol Tartrate (Metoprolol) 12.5 mg PO DAILY [facility] Last Admin: 07/08/19 13:57 Dose: Not Given Documented by: Nicotine (Habitrol) 7 mg TD QDAY [facility] Last Admin: 07/08/19 13:55 Dose: 7 mg Documented by: Nitroglycerin (Nitrostat) 0.4 mg SL Q5M PRN PRN Reason: Chest Pain Ondansetron HCl (Zofran Odt) 4 mg PO Q8H PRN PRN Reason: Nausea And Vomiting Prednisone (Deltasone) 20 mg PO QDAY [facility] Last Admin: 07/08/19 13:52 Dose: 20 mg Documented by: Quetiapine Fumarate (Seroquel) 150 mg PO BID [facility] Last Admin: 07/08/19 22:20 Dose: 150 mg Documented by: Tizanidine HCl (Zanaflex) 4 mg PO Q8H PRN PRN Reason: Muscle Spasm Tramadol HCl (Ultram) 50 mg PO Q6H PRN PRN Reason: PAIN Last Admin: 07/08/19 22:31 Dose: 50 mg Documented by: Results - Results Labs/Vitals: Laboratory Last Values WBC 5.7 K/mm3 (4.5-11.0) 07/07/19 13:39 RBC 5.04 M/mm3 (3.65-5.03) H 07/07/19 13:39 Hgb 13.6 gm/dl (10.1-14.3) 07/07/19 13:39 Hct 42.0 % (30.3-42.9) 07/07/19 13:39 MCV 83 fl (79-97) 07/07/19 13:39 MCH 27 pg (28-32) L 07/07/19 13:39 MCHC 33 % (30-34) 07/07/19 13:39 RDW 16.4 % (13.2-15.2) H 07/07/19 13:39 Plt Count 236 K/mm3 (140-440) 07/07/19 13:39 Lymph % (Auto) 44.3 % (13.4-35.0) H 07/07/19 13:39 [place] % (Auto) 7.6 % (0.0-7.3) H 07/07/19 13:39 Eos % (Auto) 2.1 % (0.0-4.3) 07/07/19 13:39 Baso % (Auto) 0.8 % (0.0-1.8) 07/07/19 13:39 Lymph # 2.5 K/mm3 (1.2-5.4) 07/07/19 13:39 [place] # 0.4 K/mm3 (0.0-0.8) 07/07/19 13:39 Eos # 0.1 K/mm3 (0.0-0.4) 07/07/19 13:39 Baso # 0.0 K/mm3 (0.0-0.1) 07/07/19 13:39 Seg Neutrophils % 45.2 % (40.0-70.0) 07/07/19 13:39 Seg Neutrophils # 2.6 K/mm3 (1.8-7.7) 07/07/19 13:39 Sodium 131 mmol/L (137-145) L 07/07/19 13:39 Potassium 3.9 mmol/L (3.6-5.0) 07/07/19 13:39 Chloride 93.2 mmol/L (98-107) L 07/07/19 13:39 Carbon Dioxide 23 mmol/L (22-30) D 07/07/19 13:39 Anion Gap 19 mmol/L 07/07/19 13:39 BUN 20 mg/dL (7-17) H 07/07/19 13:39 Creatinine 0.9 mg/dL (0.7-1.2) 07/07/19 13:39 Estimated GFR > 60 ml/min 07/07/19 13:39 BUN/Creatinine Ratio 22 % 07/07/19 13:39 Glucose 535 mg/dL (65-100) H* 07/07/19 13:39 POC Glucose 224 (70-105) H 07/08/19 20:08 Hemoglobin A1c 11.3 % (4-6) H 07/07/19 13:39 Calcium 9.3 mg/dL (8.4-10.2) 07/07/19 13:39 Total Bilirubin < 0.20 mg/dL (0.1-1.2) 07/07/19 13:39 AST 10 units/L (5-40) 07/07/19 13:39 ALT 7 units/L (7-56) 07/07/19 13:39 Alkaline Phosphatase 100 units/L (35-129) 07/07/19 13:39 Total Protein 7.1 g/dL (6.3-8.2) 07/07/19 13:39 Albumin 3.8 g/dL (3.9-5) L 07/07/19 13:39 Albumin/Globulin Ratio 1.2 % 07/07/19 13:39 Triglycerides 193 mg/dL (2-149) H 07/07/19 13:39 Cholesterol 222 mg/dL (50-199) H 07/07/19 13:39 LDL Cholesterol Direct 161 mg/dL (50-130) H 07/07/19 13:39 HDL Cholesterol 45 mg/dL (40-59) 07/07/19 13:39 Cholesterol/HDL Ratio 4.93 % 07/07/19 13:39 Last Vital Signs Temp 98.6 F 07/08/19 19:32 Pulse 69 07/08/19 22:34 Resp 14 07/08/19 22:31 BP 127/70 07/08/19 22:34 Pulse Ox 97 07/08/19 19:32
[2019-07-09] MEDS ORDERED: FLUoxetine 20 MG CAP PO SCH (10:00)
[2019-07-09] MEDS: INSULIN LISPRO 100 UNIT/ML SUB-Q SCH ×4 (10:28→21:44)
[2019-07-09] MEDS: INSULIN NPH/REGULAR 70/30 INJ SUB-Q SCH ×2 (11:34→16:51)
[2019-07-09] MEDS: NICOTINE 7 MG/24 HR PATCH TD SCH ×2 (11:35→11:41)
[2019-07-09] MEDS: HALOPERIDOL 5 MG TAB PO SCH ×2 (11:36→21:44)
[2019-07-09] MEDS: ASPIRIN 81 MG TAB CHEW PO SCH (11:36)
[2019-07-09] MEDS: metFORMIN 500 MG TAB PO SCH ×2 (11:38→16:51)
[2019-07-09] MEDS: CARBIDOPA PO SCH ×3 (11:38→19:51)
[2019-07-09] MEDS: LEVODOPA PO SCH ×3 (11:38→19:51)
[2019-07-09] MEDS: CLOPIDOGREL 75 MG TAB PO SCH (11:39)
[2019-07-09] MEDS: levETIRAcetam 500 MG TAB PO SCH ×2 (11:40→21:43)
[2019-07-09] MEDS: predniSONE 20 MG TAB PO SCH (11:40)
[2019-07-09] MEDS: carvediloL 12.5 MG TAB PO SCH ×2 (11:42→21:43)
[2019-07-09] MEDS: LISINOPRIL 40 MG TAB PO SCH (11:56)
[2019-07-09] MEDS: METOPROLOL TARTRATE 25 MG TAB PO SCH (12:20)
[2019-07-09] MEDS: FAMOTIDINE 20 MG TAB PO SCH ×2 (12:20→21:44)
[2019-07-09] MEDS: GABAPENTIN 300 MG CAP PO SCH ×3 (15:17→21:44)
[2019-07-09] MEDS: traZODone 50 MG TAB PO SCH (21:44)
[2019-07-10] MEDS: GABAPENTIN 300 MG CAP PO SCH ×3 (05:55→22:03)
[2019-07-10] MEDS: INSULIN LISPRO 100 UNIT/ML SUB-Q SCH ×4 (08:30→22:03)
--- NOTE | 2019-07-10 10:16 | Progress Note ---
Subjective Date of service: 07/10/19 Principal diagnosis: Schizoaffective disorder Subjective Comment: NURSE NOTES: Patient is alert and oriented x4, calm and cooperative, able to make needs known, interacts with peers, denies SI/HI, denies A/V/H, good appetite, medication compliant. In my interview with the patient this morning, the patient reports that she is not good , and is having thoughts of suicide. She also feels like someone is touching her. The patient stated she doesn't hear voices, and does not want to harm herself or anyone else. REVIEW OF SYSTEMS Constitutional: Negative for weight loss ENT: Negative for stridor Respiratory: Negative for cough or hemoptysis All other systems reviewed and are negative Legal Status: Voluntary Legal Status: Voluntary Patient Problems: Current Active Problems DVT prophylaxis (Acute) PTSD (post-traumatic stress disorder) (Acute) Schizoaffective disorder, depressive type (Acute) CAD (coronary artery disease) (Chronic) HLD (hyperlipidemia) (Chronic) HTN (hypertension) (Chronic) IDDM (insulin dependent diabetes mellitus) (Chronic) Parkinson disease (Chronic) Peripheral neuropathy (Chronic) Seizure disorder (Chronic) Reaction to Hospitalization: Accepting Physical Examination General appearance: Present: no acute distress, well-nourished - EENT Eyes: Present: PERRL, EOM intact ENT: hearing intact, clear oral mucosa - Neck Neck: Present: supple, normal ROM - Respiratory Respiratory effort: normal, labored Mental Status Exam Orientation: time, place, person Affect: depressed Mood: congruent with affect Thought Content: Suicidal Thought Process: Intact Perceptions: auditory, command, hallucinations Speech: normal rate and pattern Concentration: focused Motor activity: normal Level of consciousness: alert Memory: Intact Sleep Symptoms: Difficulty Falling Asleep Interaction: cooperative Assessment and Plan - Psychiatric problem (1) Schizoaffective disorder, depressive type Current Visit: Yes Status: Acute plan to address problem: see below (2) PTSD (post-traumatic stress disorder) Current Visit: Yes Status: Acute plan to address problem: Due to the psychiatric conditions and treatment listed in the Assessment and Plan - the patient requires continued hospitalization. Will continue inpatient treatment to allow for medication adjustment and monitoring. Will continue q15 min safety checks. Will encourage the use of environmental modifications and non-pharmacologic approaches for the management of behavioral and psychological symptoms. Medication adjustment made today: Continue Haldol, Zoloft per patient's request Will continue current psych medications Monitor for medication side effects. The patient will continue on medications for physical illnesses, and Hospitalist will closely monitor these Continue intensive physical and occupational therapies. Monitor patient's mood, sleep, appetite, and behavior closely. Encourage patient to participate in individual and group therapeutic sessions on the [facility]. Will provide a safe and therapeutic environment for patient. Assessment and Plan - Patient Problems (1) Schizoaffective disorder, depressive type Current Visit: Yes Status: Acute (2) PTSD (post-traumatic stress disorder) Current Visit: Yes Status: Acute Medications and Allergies Allergies Allergy/AdvReac Type Severity Reaction Status Date / Time morphine Allergy Anaphylaxis Verified 07/07/19 12:44 Home Medications Medication Instructions Recorded Confirmed Last Taken Type Lisinopril [Zestril] 40 mg PO DAILY 01/17/17 01/17/17 01/15/17 History Nitroglycerin [Nitrostat] 0.4 mg SL Q5M 01/17/17 01/17/17 Unknown History Tizanidine HCl [Zanaflex] 4 mg PO TID PRN 01/17/17 01/17/17 01/15/17 History ALBUTEROL NEB's [Proventil 0.083% 2.5 mg IH Q6H PRN #100 nebu 01/21/17 Unknown Rx NEBS] Aspirin [Aspirin BABY CHEW TAB] 81 mg PO QDAY #100 tab.chew 01/21/17 Unknown Rx AtorvaSTATin [Lipitor] 20 mg PO QHS #30 tablet 01/21/17 Unknown Rx Carbidopa/Levodopa [Rytary ER 1 each PO TID #90 capsule.er 01/21/17 Unknown Rx 23.75 mg-95 mg Cap] Clopidogrel [Plavix] 75 mg PO QDAY #30 tablet 01/21/17 Unknown Rx Detemir (Nf) [Levemir (Nf)] 20 units SUB-Q QHS #5 pen 01/21/17 Unknown Rx FLUoxetine [PROzac] 20 mg PO QDAY #30 capsule 01/21/17 Unknown Rx Famotidine [Pepcid] 20 mg PO BID #60 tablet 01/21/17 Unknown Rx Gabapentin 300 mg PO Q8HR #90 capsule 01/21/17 Unknown Rx Lisinopril [Zestril TAB] 40 mg PO BID #30 tablet 01/21/17 Unknown Rx Metoprolol [Lopressor TAB] 12.5 mg PO DAILY #30 tablet 01/21/17 Unknown Rx Prednisone [predniSONE (Gregorio) ER 20 mg PO QDAY #8 tablet. 01/21/17 Unknown Rx TAB] carvediloL [Coreg] 12.5 mg PO BID #60 tablet 01/21/17 Unknown Rx levETIRAcetam [Keppra TAB] 1,000 mg PO BID #60 tablet 01/21/17 Unknown Rx levoFLOXacin [Levaquin] 750 mg PO QDAY #8 tablet 01/21/17 Unknown Rx metFORMIN [Glucophage] 500 mg PO BID #60 tablet 01/21/17 Unknown Rx Gabapentin [Neurontin] 600 mg PO TID #90 tablet 08/22/18 Unknown Rx Ondansetron (Nf) [Zofran TAB] 4 mg PO Q8HR PRN #20 tablet 08/22/18 Unknown Rx levETIRAcetam [Keppra TAB] 1,500 mg PO BID #60 tablet 08/22/18 Unknown Rx traMADoL [Ultram] 50 mg PO Q6HR PRN #20 tablet 08/22/18 Unknown Rx Active Meds: Active Medications Albuterol (Proventil) 2.5 mg IH Q6H PRN PRN Reason: Shortness Of Breath Aspirin (Baby Aspirin) 81 mg PO QDAY [facility] Last Admin: 07/09/19 11:36 Dose: 81 mg Documented by: Atorvastatin Calcium (Lipitor) 20 mg PO QHS [facility] Last Admin: 07/09/19 21:44 Dose: 20 mg Documented by: Carbidopa/Levodopa (Sinemet Er) 1 each PO TID [facility] Last Admin: 07/09/19 19:51 Dose: 1 each Documented by: Carvedilol (Coreg) 12.5 mg PO BID [facility] Last Admin: 07/09/19 21:43 Dose: 12.5 mg Documented by: Clopidogrel Bisulfate (Plavix) 75 mg PO QDAY [facility] Last Admin: 07/09/19 11:39 Dose: 75 mg Documented by: Famotidine (Pepcid) 20 mg PO BID [facility] Last Admin: 07/09/19 21:44 Dose: 20 mg Documented by: Gabapentin (Gabapentin) 300 mg PO Q8HR [facility] Last Admin: 07/10/19 05:55 Dose: 300 mg Documented by: Haloperidol (Haldol) 5 mg PO BID [facility] Last Admin: 07/09/19 21:44 Dose: 5 mg Documented by: Hydroxyzine Pamoate (Vistaril) 50 mg PO Q6H PRN PRN Reason: Anxiety Insulin Human Isoph/Insulin Regular (Humulin 70/30) 25 unit SUB-Q BIDDIAB [facility] Last Admin: 07/09/19 16:51 Dose: 25 unit Documented by: Insulin Human Lispro (Humalog) 0 unit SUB-Q [facility]; Protocol Last Admin: 07/10/19 08:30 Dose: Not Given Documented by: Levetiracetam (Keppra) 1,000 mg PO BID [facility] Last Admin: 07/09/19 21:43 Dose: 1,000 mg Documented by: Lisinopril (Zestril) 40 mg PO DAILY [facility] Last Admin: 07/09/19 11:56 Dose: 40 mg Documented by: Metformin HCl (Glucophage) 500 mg PO BIDDIAB [facility] Last Admin: 07/09/19 16:51 Dose: 500 mg Documented by: Metoprolol Tartrate (Metoprolol) 12.5 mg PO DAILY [facility] Last Admin: 07/09/19 12:20 Dose: 12.5 mg Documented by: Nicotine (Habitrol) 7 mg TD QDAY [facility] Last Admin: 07/09/19 11:41 Dose: 7 mg Documented by: Nitroglycerin (Nitrostat) 0.4 mg SL Q5M PRN PRN Reason: Chest Pain Prednisone (Deltasone) 20 mg PO QDAY [facility] Last Admin: 07/09/19 11:40 Dose: 20 mg Documented by: Sertraline HCl (Zoloft) 50 mg PO QDAY [facility] Tizanidine HCl (Zanaflex) 4 mg PO Q8H PRN PRN Reason: Muscle Spasm Tramadol HCl (Ultram) 50 mg PO Q6H PRN PRN Reason: PAIN Last Admin: 07/08/19 22:31 Dose: 50 mg Documented by: Trazodone HCl (Desyrel) 50 mg PO QHS [facility] Last Admin: 07/09/19 21:44 Dose: 50 mg Documented by: Results - Results Labs/Vitals: Laboratory Last Values WBC 5.7 K/mm3 (4.5-11.0) 07/07/19 13:39 RBC 5.04 M/mm3 (3.65-5.03) H 07/07/19 13:39 Hgb 13.6 gm/dl (10.1-14.3) 07/07/19 13:39 Hct 42.0 % (30.3-42.9) 07/07/19 13:39 MCV 83 fl (79-97) 07/07/19 13:39 MCH 27 pg (28-32) L 07/07/19 13:39 MCHC 33 % (30-34) 07/07/19 13:39 RDW 16.4 % (13.2-15.2) H 07/07/19 13:39 Plt Count 236 K/mm3 (140-440) 07/07/19 13:39 Lymph % (Auto) 44.3 % (13.4-35.0) H 07/07/19 13:39 [place] % (Auto) 7.6 % (0.0-7.3) H 07/07/19 13:39 Eos % (Auto) 2.1 % (0.0-4.3) 07/07/19 13:39 Baso % (Auto) 0.8 % (0.0-1.8) 07/07/19 13:39 Lymph # 2.5 K/mm3 (1.2-5.4) 07/07/19 13:39 [place] # 0.4 K/mm3 (0.0-0.8) 07/07/19 13:39 Eos # 0.1 K/mm3 (0.0-0.4) 07/07/19 13:39 Baso # 0.0 K/mm3 (0.0-0.1) 07/07/19 13:39 Seg Neutrophils % 45.2 % (40.0-70.0) 07/07/19 13:39 Seg Neutrophils # 2.6 K/mm3 (1.8-7.7) 07/07/19 13:39 Sodium 131 mmol/L (137-145) L 07/07/19 13:39 Potassium 3.9 mmol/L (3.6-5.0) 07/07/19 13:39 Chloride 93.2 mmol/L (98-107) L 07/07/19 13:39 Carbon Dioxide 23 mmol/L (22-30) D 07/07/19 13:39 Anion Gap 19 mmol/L 07/07/19 13:39 BUN 20 mg/dL (7-17) H 07/07/19 13:39 Creatinine 0.9 mg/dL (0.7-1.2) 07/07/19 13:39 Estimated GFR > 60 ml/min 07/07/19 13:39 BUN/Creatinine Ratio 22 % 07/07/19 13:39 Glucose 535 mg/dL (65-100) H* 07/07/19 13:39 POC Glucose 98 (70-105) 07/10/19 06:23 Hemoglobin A1c 11.3 % (4-6) H 07/07/19 13:39 Calcium 9.3 mg/dL (8.4-10.2) 07/07/19 13:39 Total Bilirubin < 0.20 mg/dL (0.1-1.2) 07/07/19 13:39 AST 10 units/L (5-40) 07/07/19 13:39 ALT 7 units/L (7-56) 07/07/19 13:39 Alkaline Phosphatase 100 units/L (35-129) 07/07/19 13:39 Total Protein 7.1 g/dL (6.3-8.2) 07/07/19 13:39 Albumin 3.8 g/dL (3.9-5) L 07/07/19 13:39 Albumin/Globulin Ratio 1.2 % 07/07/19 13:39 Triglycerides 193 mg/dL (2-149) H 07/07/19 13:39 Cholesterol 222 mg/dL (50-199) H 07/07/19 13:39 LDL Cholesterol Direct 161 mg/dL (50-130) H 07/07/19 13:39 HDL Cholesterol 45 mg/dL (40-59) 07/07/19 13:39 Cholesterol/HDL Ratio 4.93 % 07/07/19 13:39 Last Vital Signs Temp 98.6 F 07/09/19 22:00 Pulse 73 07/09/19 22:00 Resp 18 07/09/19 22:00 BP 93/55 07/09/19 22:00 Pulse Ox 99 07/09/19 22:00
[2019-07-10] MEDS: METOPROLOL TARTRATE 25 MG TAB PO SCH (10:59)
[2019-07-10] MEDS: ASPIRIN 81 MG TAB CHEW PO SCH (11:00)
[2019-07-10] MEDS: LEVODOPA PO SCH ×3 (11:01→22:03)
[2019-07-10] MEDS: CARBIDOPA PO SCH ×3 (11:01→22:03)
[2019-07-10] MEDS: INSULIN NPH/REGULAR 70/30 INJ SUB-Q SCH ×2 (11:02→16:38)
[2019-07-10] MEDS: FAMOTIDINE 20 MG TAB PO SCH ×2 (11:03→22:02)
[2019-07-10] MEDS: HALOPERIDOL 5 MG TAB PO SCH ×2 (11:03→22:02)
[2019-07-10] MEDS: NICOTINE 7 MG/24 HR PATCH TD SCH (11:03)
[2019-07-10] MEDS: predniSONE 20 MG TAB PO SCH (11:04)
[2019-07-10] MEDS: CLOPIDOGREL 75 MG TAB PO SCH (11:04)
[2019-07-10] MEDS: LISINOPRIL 40 MG TAB PO SCH (11:05)
[2019-07-10] MEDS: carvediloL 12.5 MG TAB PO SCH ×2 (11:08→22:03)
[2019-07-10] MEDS: levETIRAcetam 500 MG TAB PO SCH ×2 (12:08→22:02)
[2019-07-10] MEDS: metFORMIN 500 MG TAB PO SCH ×2 (12:09→16:37)
[2019-07-10] MEDS: SERTRALINE 50 MG TAB PO SCH (12:09)
[2019-07-10] MEDS: traZODone 50 MG TAB PO SCH (22:02)
[2019-07-11] MEDS: GABAPENTIN 300 MG CAP PO SCH ×3 (06:11→21:43)
[2019-07-11] MEDS: INSULIN LISPRO 100 UNIT/ML SUB-Q SCH ×4 (07:30→21:44)
--- NOTE | 2019-07-11 07:56 | Progress Note ---
Subjective Date of service: 07/11/19 Principal diagnosis: Schizoaffective disorder Subjective Comment: NURSE NOTES: patient is alert and oriented x's 4, calm, and cooperative. interacts appropraitely with staff. patient tolerated morning medications whole. compliant with medications. denies hi. patient states she sees "a white man with no eyes" that tells her to lay on the train tracks. patient does have thoughts of hurting self by listening to the voice. patient ambulates independently. pat ient resting quietly in dayroom. will continue to monitor for safety. Initialized on 07/10/19 12:57 - END OF NOTE In my interview with the patient this morning, the patient reports that she slept well but woke up early this morning. She states she's still having thoughts of SI but denies HI. She says her mood is okay. Pt says they don't have her DM medications correct. Pt denies hallucinations at this time. She says her appetite is good. Denies paranoia. REVIEW OF SYSTEMS Constitutional: Negative for weight loss ENT: Negative for stridor Respiratory: Negative for cough or hemoptysis All other systems reviewed and are negative Legal Status: Voluntary Legal Status: Voluntary Patient Problems: Current Active Problems DVT prophylaxis (Acute) PTSD (post-traumatic stress disorder) (Acute) Schizoaffective disorder, depressive type (Acute) CAD (coronary artery disease) (Chronic) HLD (hyperlipidemia) (Chronic) HTN (hypertension) (Chronic) IDDM (insulin dependent diabetes mellitus) (Chronic) Parkinson disease (Chronic) Peripheral neuropathy (Chronic) Seizure disorder (Chronic) Reaction to Hospitalization: Accepting Physical Examination General appearance: Present: no acute distress, well-nourished - EENT Eyes: Present: PERRL, EOM intact ENT: hearing intact, clear oral mucosa - Neck Neck: Present: supple, normal ROM - Respiratory Respiratory effort: normal, labored Mental Status Exam Orientation: time, place, person Affect: depressed Mood: congruent with affect Thought Content: Suicidal Thought Process: Intact Perceptions: auditory, command, hallucinations Speech: normal rate and pattern Concentration: focused Motor activity: normal Level of consciousness: alert Memory: Intact Sleep Symptoms: Difficulty Falling Asleep Interaction: cooperative Assessment and Plan - Psychiatric problem (1) Schizoaffective disorder, depressive type Current Visit: Yes Status: Acute plan to address problem: see below (2) PTSD (post-traumatic stress disorder) Current Visit: Yes Status: Acute plan to address problem: Due to the psychiatric conditions and treatment listed in the Assessment and Plan - the patient requires continued hospitalization. Will continue inpatient treatment to allow for medication adjustment and monitoring. Will continue q15 min safety checks. Will encourage the use of environmental modifications and non-pharmacologic approaches for the management of behavioral and psychological symptoms. Medication adjustment made today: Continue Haldol, Zoloft per patient's request Will continue current psych medications Monitor for medication side effects. The patient will continue on medications for physical illnesses, and Hospitalist will closely monitor these Continue intensive physical and occupational therapies. Monitor patient's mood, sleep, appetite, and behavior closely. Encourage patient to participate in individual and group therapeutic sessions on the [place]. Will provide a safe and therapeutic environment for patient. Assessment and Plan - Patient Problems (1) Schizoaffective disorder, depressive type Current Visit: Yes Status: Acute (2) PTSD (post-traumatic stress disorder) Current Visit: Yes Status: Acute Medications and Allergies Allergies Allergy/AdvReac Type Severity Reaction Status Date / Time morphine Allergy Anaphylaxis Verified 07/07/19 12:44 Home Medications Medication Instructions Recorded Confirmed Last Taken Type Lisinopril [Zestril] 40 mg PO DAILY 01/17/17 01/17/17 01/15/17 History Nitroglycerin [Nitrostat] 0.4 mg SL Q5M 01/17/17 01/17/17 Unknown History Tizanidine HCl [Zanaflex] 4 mg PO TID PRN 01/17/17 01/17/17 01/15/17 History ALBUTEROL NEB's [Proventil 0.083% 2.5 mg IH Q6H PRN #100 nebu 01/21/17 Unknown Rx NEBS] Aspirin [Aspirin BABY CHEW TAB] 81 mg PO QDAY #100 tab.chew 01/21/17 Unknown Rx AtorvaSTATin [Lipitor] 20 mg PO QHS #30 tablet 01/21/17 Unknown Rx Carbidopa/Levodopa [Rytary ER 1 each PO TID #90 capsule.er 01/21/17 Unknown Rx 23.75 mg-95 mg Cap] Clopidogrel [Plavix] 75 mg PO QDAY #30 tablet 01/21/17 Unknown Rx Detemir (Nf) [Levemir (Nf)] 20 units SUB-Q QHS #5 pen 01/21/17 Unknown Rx FLUoxetine [PROzac] 20 mg PO QDAY #30 capsule 01/21/17 Unknown Rx Famotidine [Pepcid] 20 mg PO BID #60 tablet 01/21/17 Unknown Rx Gabapentin 300 mg PO Q8HR #90 capsule 01/21/17 Unknown Rx Lisinopril [Zestril TAB] 40 mg PO BID #30 tablet 01/21/17 Unknown Rx Metoprolol [Lopressor TAB] 12.5 mg PO DAILY #30 tablet 01/21/17 Unknown Rx Prednisone [predniSONE (Gregorio) ER 20 mg PO QDAY #8 tablet. 01/21/17 Unknown Rx TAB] carvediloL [Coreg] 12.5 mg PO BID #60 tablet 01/21/17 Unknown Rx levETIRAcetam [Keppra TAB] 1,000 mg PO BID #60 tablet 01/21/17 Unknown Rx levoFLOXacin [Levaquin] 750 mg PO QDAY #8 tablet 01/21/17 Unknown Rx metFORMIN [Glucophage] 500 mg PO BID #60 tablet 01/21/17 Unknown Rx Gabapentin [Neurontin] 600 mg PO TID #90 tablet 08/22/18 Unknown Rx Ondansetron (Nf) [Zofran TAB] 4 mg PO Q8HR PRN #20 tablet 08/22/18 Unknown Rx levETIRAcetam [Keppra TAB] 1,500 mg PO BID #60 tablet 08/22/18 Unknown Rx traMADoL [Ultram] 50 mg PO Q6HR PRN #20 tablet 08/22/18 Unknown Rx Active Meds: Active Medications Albuterol (Proventil) 2.5 mg IH Q6H PRN PRN Reason: Shortness Of Breath Aspirin (Baby Aspirin) 81 mg PO QDAY [facility] Last Admin: 07/10/19 11:00 Dose: 81 mg Documented by: Atorvastatin Calcium (Lipitor) 20 mg PO QHS [facility] Last Admin: 07/10/19 22:03 Dose: 20 mg Documented by: Carbidopa/Levodopa (Sinemet Er) 1 each PO TID [facility] Last Admin: 07/10/19 22:03 Dose: 1 each Documented by: Carvedilol (Coreg) 12.5 mg PO BID [facility] Last Admin: 07/10/19 22:03 Dose: 12.5 mg Documented by: Clopidogrel Bisulfate (Plavix) 75 mg PO QDAY [facility] Last Admin: 07/10/19 11:04 Dose: 75 mg Documented by: Famotidine (Pepcid) 20 mg PO BID [facility] Last Admin: 07/10/19 22:02 Dose: 20 mg Documented by: Gabapentin (Gabapentin) 300 mg PO Q8HR [facility] Last Admin: 07/11/19 06:11 Dose: 300 mg Documented by: Haloperidol (Haldol) 5 mg PO BID [facility] Last Admin: 07/10/19 22:02 Dose: 5 mg Documented by: Hydroxyzine Pamoate (Vistaril) 50 mg PO Q6H PRN PRN Reason: Anxiety Insulin Human Isoph/Insulin Regular (Humulin 70/30) 25 unit SUB-Q BIDDIAB [facility] Last Admin: 07/10/19 16:38 Dose: 25 unit Documented by: Insulin Human Lispro (Humalog) 0 unit SUB-Q [facility]; Protocol Last Admin: 07/10/19 22:03 Dose: 3 unit Documented by: Levetiracetam (Keppra) 1,000 mg PO BID [facility] Last Admin: 07/10/19 22:02 Dose: 1,000 mg Documented by: Lisinopril (Zestril) 40 mg PO DAILY [facility] Last Admin: 07/10/19 11:05 Dose: 40 mg Documented by: Metformin HCl (Glucophage) 500 mg PO BIDDIAB [facility] Last Admin: 07/10/19 16:37 Dose: 500 mg Documented by: Metoprolol Tartrate (Metoprolol) 12.5 mg PO DAILY [facility] Last Admin: 07/10/19 10:59 Dose: Not Given Documented by: Nicotine (Habitrol) 7 mg TD QDAY [facility] Last Admin: 07/10/19 11:03 Dose: 7 mg Documented by: Nitroglycerin (Nitrostat) 0.4 mg SL Q5M PRN PRN Reason: Chest Pain Prednisone (Deltasone) 20 mg PO QDAY [facility] Last Admin: 07/10/19 11:04 Dose: 20 mg Documented by: Sertraline HCl (Zoloft) 50 mg PO QDAY [facility] Last Admin: 07/10/19 12:09 Dose: 50 mg Documented by: Tizanidine HCl (Zanaflex) 4 mg PO Q8H PRN PRN Reason: Muscle Spasm Tramadol HCl (Ultram) 50 mg PO Q6H PRN PRN Reason: PAIN Last Admin: 07/08/19 22:31 Dose: 50 mg Documented by: Trazodone HCl (Desyrel) 50 mg PO QHS [facility] Last Admin: 07/10/19 22:02 Dose: 50 mg Documented by: Results - Results Labs/Vitals: Laboratory Last Values WBC 5.7 K/mm3 (4.5-11.0) 07/07/19 13:39 RBC 5.04 M/mm3 (3.65-5.03) H 07/07/19 13:39 Hgb 13.6 gm/dl (10.1-14.3) 07/07/19 13:39 Hct 42.0 % (30.3-42.9) 07/07/19 13:39 MCV 83 fl (79-97) 07/07/19 13:39 MCH 27 pg (28-32) L 07/07/19 13:39 MCHC 33 % (30-34) 07/07/19 13:39 RDW 16.4 % (13.2-15.2) H 07/07/19 13:39 Plt Count 236 K/mm3 (140-440) 07/07/19 13:39 Lymph % (Auto) 44.3 % (13.4-35.0) H 07/07/19 13:39 [place] % (Auto) 7.6 % (0.0-7.3) H 07/07/19 13:39 Eos % (Auto) 2.1 % (0.0-4.3) 07/07/19 13:39 Baso % (Auto) 0.8 % (0.0-1.8) 07/07/19 13:39 Lymph # 2.5 K/mm3 (1.2-5.4) 07/07/19 13:39 [place] # 0.4 K/mm3 (0.0-0.8) 07/07/19 13:39 Eos # 0.1 K/mm3 (0.0-0.4) 07/07/19 13:39 Baso # 0.0 K/mm3 (0.0-0.1) 07/07/19 13:39 Seg Neutrophils % 45.2 % (40.0-70.0) 07/07/19 13:39 Seg Neutrophils # 2.6 K/mm3 (1.8-7.7) 07/07/19 13:39 Sodium 131 mmol/L (137-145) L 07/07/19 13:39 Potassium 3.9 mmol/L (3.6-5.0) 07/07/19 13:39 Chloride 93.2 mmol/L (98-107) L 07/07/19 13:39 Carbon Dioxide 23 mmol/L (22-30) D 07/07/19 13:39 Anion Gap 19 mmol/L 07/07/19 13:39 BUN 20 mg/dL (7-17) H 07/07/19 13:39 Creatinine 0.9 mg/dL (0.7-1.2) 07/07/19 13:39 Estimated GFR > 60 ml/min 07/07/19 13:39 BUN/Creatinine Ratio 22 % 07/07/19 13:39 Glucose 535 mg/dL (65-100) H* 07/07/19 13:39 POC Glucose 80 (70-105) 07/11/19 07:40 Hemoglobin A1c 11.3 % (4-6) H 07/07/19 13:39 Calcium 9.3 mg/dL (8.4-10.2) 07/07/19 13:39 Total Bilirubin < 0.20 mg/dL (0.1-1.2) 07/07/19 13:39 AST 10 units/L (5-40) 07/07/19 13:39 ALT 7 units/L (7-56) 07/07/19 13:39 Alkaline Phosphatase 100 units/L (35-129) 07/07/19 13:39 Total Protein 7.1 g/dL (6.3-8.2) 07/07/19 13:39 Albumin 3.8 g/dL (3.9-5) L 07/07/19 13:39 Albumin/Globulin Ratio 1.2 % 07/07/19 13:39 Triglycerides 193 mg/dL (2-149) H 07/07/19 13:39 Cholesterol 222 mg/dL (50-199) H 07/07/19 13:39 LDL Cholesterol Direct 161 mg/dL (50-130) H 07/07/19 13:39 HDL Cholesterol 45 mg/dL (40-59) 07/07/19 13:39 Cholesterol/HDL Ratio 4.93 % 07/07/19 13:39 Last Vital Signs Temp 97.9 F 07/10/19 20:34 Pulse 65 07/10/19 22:03 Resp 18 07/10/19 20:34 BP 105/57 07/10/19 22:03 Pulse Ox 98 07/10/19 20:34
[2019-07-11] MEDS: CARBIDOPA PO SCH ×3 (08:00→21:43)
[2019-07-11] MEDS: metFORMIN 500 MG TAB PO SCH ×2 (08:00→17:40)
[2019-07-11] MEDS: LEVODOPA PO SCH ×3 (08:00→21:43)
[2019-07-11] MEDS: INSULIN NPH/REGULAR 70/30 INJ SUB-Q SCH ×2 (08:00→17:41)
[2019-07-11] MEDS: LISINOPRIL 40 MG TAB PO SCH (10:01)
[2019-07-11] MEDS: predniSONE 20 MG TAB PO SCH (10:01)
[2019-07-11] MEDS: FAMOTIDINE 20 MG TAB PO SCH ×2 (10:02→21:44)
[2019-07-11] MEDS: HALOPERIDOL 5 MG TAB PO SCH ×2 (10:02→21:42)
[2019-07-11] MEDS: carvediloL 12.5 MG TAB PO SCH ×2 (10:02→21:43)
[2019-07-11] MEDS: levETIRAcetam 500 MG TAB PO SCH ×2 (10:03→21:42)
[2019-07-11] MEDS: ASPIRIN 81 MG TAB CHEW PO SCH (10:03)
[2019-07-11] MEDS: SERTRALINE 50 MG TAB PO SCH (10:05)
[2019-07-11] MEDS: METOPROLOL TARTRATE 25 MG TAB PO SCH (10:05)
[2019-07-11] MEDS: CLOPIDOGREL 75 MG TAB PO SCH (10:05)
[2019-07-11] MEDS: NICOTINE 7 MG/24 HR PATCH TD SCH (10:06)
[2019-07-11] MEDS: traMADol 50 MG TAB PO PRN (15:09)
[2019-07-11] MEDS: traZODone 50 MG TAB PO SCH (21:42)
[2019-07-12] MEDS: GABAPENTIN 300 MG CAP PO SCH ×3 (06:08→22:25)
--- NOTE | 2019-07-12 08:35 | Progress Note ---
Subjective Date of service: 07/12/19 Principal diagnosis: Schizoaffective disorder Subjective Comment: Reviewed patient's medical record and discussed changes with nursing staff. Nursing note states patient isolates herself from others, by staying in her room. Compliant with PM medications. Denies SI/HI. In my interview with the patient this morning, she the patient is still in bed. She reports that she "feels a little better." She says the voices have gotten a little better but she says she still hears it sometimes. Mrs. Edwards says she slept well, and has a good appetite. She denies SI/HI at this time. REVIEW OF SYSTEMS Constitutional: Negative for weight loss ENT: Negative for stridor Respiratory: Negative for cough or hemoptysis All other systems reviewed and are negative Legal Status: Voluntary Legal Status: Voluntary Patient Problems: Current Active Problems DVT prophylaxis (Acute) PTSD (post-traumatic stress disorder) (Acute) Schizoaffective disorder, depressive type (Acute) CAD (coronary artery disease) (Chronic) HLD (hyperlipidemia) (Chronic) HTN (hypertension) (Chronic) IDDM (insulin dependent diabetes mellitus) (Chronic) Parkinson disease (Chronic) Peripheral neuropathy (Chronic) Seizure disorder (Chronic) Reaction to Hospitalization: Accepting Mental Status Exam Orientation: time, place, person Affect: Depressed Mood: congruent with affect Thought Content: Denies SI/HI at this time Thought Process: Intact Perceptions: auditory, command, hallucinations Speech: normal rate and pattern Concentration: focused Motor activity: normal Level of consciousness: alert Memory: Intact Sleep Symptoms: States she slept well Interaction: cooperative, calm Assessment and Plan - Psychiatric problem (1) Schizoaffective disorder, depressive type Current Visit: Yes Status: Acute plan to address problem: see below (2) PTSD (post-traumatic stress disorder) Current Visit: Yes Status: Acute plan to address problem: Due to the psychiatric conditions and treatment listed in the Assessment and Plan - the patient requires continued hospitalization. Will continue inpatient treatment to allow for medication adjustment and monitoring. Will continue q15 min safety checks. Will encourage the use of environmental modifications and non-pharmacologic approaches for the management of behavioral and psychological symptoms. Will continue current psych medications Monitor for medication side effects. The patient will continue on medications for physical illnesses, and Hospitalist will closely monitor these Continue intensive physical and occupational therapies. Monitor patient's mood, sleep, appetite, and behavior closely. Encourage patient to participate in individual and group therapeutic sessions on the [place]. Will provide a safe and therapeutic environment for patient. Possible discharge Sunday or Sunday Assessment and Plan - Patient Problems (1) Schizoaffective disorder, depressive type Current Visit: Yes Status: Acute (2) PTSD (post-traumatic stress disorder) Current Visit: Yes Status: Acute Assessment and Plan - Patient Problems (1) Schizoaffective disorder, depressive type Current Visit: Yes Status: Acute (2) PTSD (post-traumatic stress disorder) Current Visit: Yes Status: Acute Medications and Allergies Allergies Allergy/AdvReac Type Severity Reaction Status Date / Time morphine Allergy Anaphylaxis Verified 07/07/19 12:44 Home Medications Medication Instructions Recorded Confirmed Last Taken Type Lisinopril [Zestril] 40 mg PO DAILY 01/17/17 07/11/19 01/15/17 History Nitroglycerin [Nitrostat] 0.4 mg SL Q5M 01/17/17 07/11/19 Unknown History Tizanidine HCl [Zanaflex] 4 mg PO TID PRN 01/17/17 07/11/19 01/15/17 History ALBUTEROL NEB's [Proventil 0.083% 2.5 mg IH Q6H PRN #100 nebu 01/21/17 07/11/19 Unknown Rx NEBS] Aspirin [Aspirin BABY CHEW TAB] 81 mg PO QDAY #100 tab.chew 01/21/17 07/11/19 Unknown Rx AtorvaSTATin [Lipitor] 20 mg PO QHS #30 tablet 01/21/17 07/11/19 Unknown Rx Carbidopa/Levodopa [Rytary ER 1 each PO TID #90 capsule.er 01/21/17 07/11/19 Unknown Rx 23.75 mg-95 mg Cap] Clopidogrel [Plavix] 75 mg PO QDAY #30 tablet 01/21/17 07/11/19 Unknown Rx Detemir (Nf) [Levemir (Nf)] 20 units SUB-Q QHS #5 pen 01/21/17 07/11/19 Unknown Rx FLUoxetine [PROzac] 20 mg PO QDAY #30 capsule 01/21/17 07/11/19 Unknown Rx Famotidine [Pepcid] 20 mg PO BID #60 tablet 01/21/17 07/11/19 Unknown Rx Gabapentin 300 mg PO Q8HR #90 capsule 01/21/17 07/11/19 Unknown Rx Lisinopril [Zestril TAB] 40 mg PO BID #30 tablet 01/21/17 07/11/19 Unknown Rx Metoprolol [Lopressor TAB] 12.5 mg PO DAILY #30 tablet 01/21/17 07/11/19 Unknown Rx Prednisone [predniSONE (Gregorio) ER 20 mg PO QDAY #8 tablet. 01/21/17 07/11/19 Unknown Rx TAB] carvediloL [Coreg] 12.5 mg PO BID #60 tablet 01/21/17 07/11/19 Unknown Rx levETIRAcetam [Keppra TAB] 1,000 mg PO BID #60 tablet 01/21/17 07/11/19 Unknown Rx levoFLOXacin [Levaquin] 750 mg PO QDAY #8 tablet 01/21/17 07/11/19 Unknown Rx metFORMIN [Glucophage] 500 mg PO BID #60 tablet 01/21/17 07/11/19 Unknown Rx Gabapentin [Neurontin] 600 mg PO TID #90 tablet 08/22/18 07/11/19 Unknown Rx Ondansetron (Nf) [Zofran TAB] 4 mg PO Q8HR PRN #20 tablet 08/22/18 07/11/19 Unknown Rx levETIRAcetam [Keppra TAB] 1,500 mg PO BID #60 tablet 08/22/18 07/11/19 Unknown Rx traMADoL [Ultram] 50 mg PO Q6HR PRN #20 tablet 08/22/18 07/11/19 Unknown Rx Active Meds: Active Medications Albuterol (Proventil) 2.5 mg IH Q6H PRN PRN Reason: Shortness Of Breath Aspirin (Baby Aspirin) 81 mg PO QDAY [facility] Last Admin: 07/11/19 10:03 Dose: 81 mg Documented by: Atorvastatin Calcium (Lipitor) 20 mg PO QHS [facility] Last Admin: 07/11/19 21:42 Dose: 20 mg Documented by: Carbidopa/Levodopa (Sinemet Er) 1 each PO TID [facility] Last Admin: 07/11/19 21:43 Dose: 1 each Documented by: Carvedilol (Coreg) 12.5 mg PO BID [facility] Last Admin: 07/11/19 21:43 Dose: 12.5 mg Documented by: Clopidogrel Bisulfate (Plavix) 75 mg PO QDAY [facility] Last Admin: 07/11/19 10:05 Dose: 75 mg Documented by: Famotidine (Pepcid) 20 mg PO BID [facility] Last Admin: 07/11/19 21:44 Dose: 20 mg Documented by: Gabapentin (Gabapentin) 300 mg PO Q8HR [facility] Last Admin: 07/12/19 06:08 Dose: 300 mg Documented by: Haloperidol (Haldol) 5 mg PO BID [facility] Last Admin: 07/11/19 21:42 Dose: 5 mg Documented by: Hydroxyzine Pamoate (Vistaril) 50 mg PO Q6H PRN PRN Reason: Anxiety Insulin Human Isoph/Insulin Regular (Humulin 70/30) 25 unit SUB-Q BIDDIAB [facility] Last Admin: 07/11/19 17:41 Dose: 25 unit Documented by: Insulin Human Lispro (Humalog) 0 unit SUB-Q [facility]; Protocol Last Admin: 07/11/19 21:44 Dose: 4 unit Documented by: Levetiracetam (Keppra) 1,000 mg PO BID [facility] Last Admin: 07/11/19 21:42 Dose: 1,000 mg Documented by: Lisinopril (Zestril) 40 mg PO DAILY [facility] Last Admin: 07/11/19 10:01 Dose: 40 mg Documented by: Metformin HCl (Glucophage) 500 mg PO BIDDIAB [facility] Last Admin: 07/11/19 17:40 Dose: 500 mg Documented by: Metoprolol Tartrate (Metoprolol) 12.5 mg PO DAILY [facility] Last Admin: 07/11/19 10:05 Dose: 12.5 mg Documented by: Nicotine (Habitrol) 7 mg TD QDAY [facility] Last Admin: 07/11/19 10:06 Dose: 7 mg Documented by: Nitroglycerin (Nitrostat) 0.4 mg SL Q5M PRN PRN Reason: Chest Pain Prednisone (Deltasone) 20 mg PO QDAY [facility] Last Admin: 07/11/19 10:01 Dose: 20 mg Documented by: Sertraline HCl (Zoloft) 50 mg PO QDAY [facility] Last Admin: 07/11/19 10:05 Dose: 50 mg Documented by: Tizanidine HCl (Zanaflex) 4 mg PO Q8H PRN PRN Reason: Muscle Spasm Tramadol HCl (Ultram) 50 mg PO Q6H PRN PRN Reason: PAIN Last Admin: 07/11/19 15:09 Dose: 50 mg Documented by: Trazodone HCl (Desyrel) 50 mg PO QHS [facility] Last Admin: 07/11/19 21:42 Dose: 50 mg Documented by: Results - Results Labs/Vitals: Laboratory Last Values WBC 5.7 K/mm3 (4.5-11.0) 07/07/19 13:39 RBC 5.04 M/mm3 (3.65-5.03) H 07/07/19 13:39 Hgb 13.6 gm/dl (10.1-14.3) 07/07/19 13:39 Hct 42.0 % (30.3-42.9) 07/07/19 13:39 MCV 83 fl (79-97) 07/07/19 13:39 MCH 27 pg (28-32) L 07/07/19 13:39 MCHC 33 % (30-34) 07/07/19 13:39 RDW 16.4 % (13.2-15.2) H 07/07/19 13:39 Plt Count 236 K/mm3 (140-440) 07/07/19 13:39 Lymph % (Auto) 44.3 % (13.4-35.0) H 07/07/19 13:39 [place] % (Auto) 7.6 % (0.0-7.3) H 07/07/19 13:39 Eos % (Auto) 2.1 % (0.0-4.3) 07/07/19 13:39 Baso % (Auto) 0.8 % (0.0-1.8) 07/07/19 13:39 Lymph # 2.5 K/mm3 (1.2-5.4) 07/07/19 13:39 [place] # 0.4 K/mm3 (0.0-0.8) 07/07/19 13:39 Eos # 0.1 K/mm3 (0.0-0.4) 07/07/19 13:39 Baso # 0.0 K/mm3 (0.0-0.1) 07/07/19 13:39 Seg Neutrophils % 45.2 % (40.0-70.0) 07/07/19 13:39 Seg Neutrophils # 2.6 K/mm3 (1.8-7.7) 07/07/19 13:39 Sodium 131 mmol/L (137-145) L 07/07/19 13:39 Potassium 3.9 mmol/L (3.6-5.0) 07/07/19 13:39 Chloride 93.2 mmol/L (98-107) L 07/07/19 13:39 Carbon Dioxide 23 mmol/L (22-30) D 07/07/19 13:39 Anion Gap 19 mmol/L 07/07/19 13:39 BUN 20 mg/dL (7-17) H 07/07/19 13:39 Creatinine 0.9 mg/dL (0.7-1.2) 07/07/19 13:39 Estimated GFR > 60 ml/min 07/07/19 13:39 BUN/Creatinine Ratio 22 % 07/07/19 13:39 Glucose 535 mg/dL (65-100) H* 07/07/19 13:39 POC Glucose 71 (70-105) 07/12/19 07:38 Hemoglobin A1c 11.3 % (4-6) H 07/07/19 13:39 Calcium 9.3 mg/dL (8.4-10.2) 07/07/19 13:39 Total Bilirubin < 0.20 mg/dL (0.1-1.2) 07/07/19 13:39 AST 10 units/L (5-40) 07/07/19 13:39 ALT 7 units/L (7-56) 07/07/19 13:39 Alkaline Phosphatase 100 units/L (35-129) 07/07/19 13:39 Total Protein 7.1 g/dL (6.3-8.2) 07/07/19 13:39 Albumin 3.8 g/dL (3.9-5) L 07/07/19 13:39 Albumin/Globulin Ratio 1.2 % 07/07/19 13:39 Triglycerides 193 mg/dL (2-149) H 07/07/19 13:39 Cholesterol 222 mg/dL (50-199) H 07/07/19 13:39 LDL Cholesterol Direct 161 mg/dL (50-130) H 07/07/19 13:39 HDL Cholesterol 45 mg/dL (40-59) 07/07/19 13:39 Cholesterol/HDL Ratio 4.93 % 07/07/19 13:39 Last Vital Signs Temp 97.9 F 07/10/19 20:34 Pulse 71 07/11/19 21:43 Resp 18 07/10/19 20:34 BP 103/60 07/11/19 21:43 Pulse Ox 98 07/10/19 20:34
[2019-07-12] MEDS: NICOTINE 7 MG/24 HR PATCH TD SCH (09:39)
[2019-07-12] MEDS: INSULIN LISPRO 100 UNIT/ML SUB-Q SCH ×5 (09:39→22:30)
[2019-07-12] MEDS: HALOPERIDOL 5 MG TAB PO SCH ×2 (09:39→22:24)
[2019-07-12] MEDS: CLOPIDOGREL 75 MG TAB PO SCH (09:39)
[2019-07-12] MEDS: LISINOPRIL 40 MG TAB PO SCH (09:40)
[2019-07-12] MEDS: metFORMIN 500 MG TAB PO SCH ×2 (09:40→17:38)
[2019-07-12] MEDS: levETIRAcetam 500 MG TAB PO SCH ×2 (09:40→22:24)
[2019-07-12] MEDS: CARBIDOPA PO SCH ×3 (09:40→22:24)
[2019-07-12] MEDS: traMADol 50 MG TAB PO PRN ×2 (09:40→17:38)
[2019-07-12] MEDS: LEVODOPA PO SCH ×3 (09:40→22:24)
[2019-07-12] MEDS: carvediloL 12.5 MG TAB PO SCH ×2 (09:41→22:26)
[2019-07-12] MEDS: METOPROLOL TARTRATE 25 MG TAB PO SCH (09:41)
[2019-07-12] MEDS: predniSONE 20 MG TAB PO SCH (09:41)
[2019-07-12] MEDS: FAMOTIDINE 20 MG TAB PO SCH ×2 (09:42→22:24)
[2019-07-12] MEDS: ASPIRIN 81 MG TAB CHEW PO SCH (09:42)
[2019-07-12] MEDS: INSULIN NPH/REGULAR 70/30 INJ SUB-Q SCH ×2 (11:39→17:38)
[2019-07-12] MEDS: SERTRALINE 50 MG TAB PO SCH (11:39)
[2019-07-12] MEDS: traZODone 50 MG TAB PO SCH (22:24)
[2019-07-13] MEDS: GABAPENTIN 300 MG CAP PO SCH ×3 (05:55→21:50)
[2019-07-13] MEDS: INSULIN LISPRO 100 UNIT/ML SUB-Q SCH ×4 (08:57→21:02)
--- NOTE | 2019-07-13 10:23 | Progress Note ---
Subjective Date of service: 07/13/19 Principal diagnosis: Schizoaffective disorder, Depressive Type Subjective Comment: Reviewed patient's medical record and discussed changes with nursing staff. Nursing note states patient has been isolative and withdrawn. appears depressed. patient has been resting in bed for most of the morning, only getting up for meals. patient is medication compliant. patient continues to have thoughts of getting onto a bus and laying out on the train tracks. In my interview with the patient this morning, she the patient is still in bed. She states she did not sleep well due to pain. SHe says her mood "is getting better." Mrs. Edwards says she still hears the voices but she "manages to keep them at bay." She denies SI/HI. She says her appetite is "much better." and says she's supposed to go home tomorrow. REVIEW OF SYSTEMS Constitutional: Negative for weight loss ENT: Negative for stridor Respiratory: Negative for cough or hemoptysis All other systems reviewed and are negative Legal Status: Voluntary Reaction to Hospitalization: Accepting Mental Status Exam Orientation: time, place, person Affect: Restricted Mood: congruent with affect Thought Content: Denies SI/HI at this time Thought Process: Intact Perceptions: auditory hallucinations Speech: normal rate and pattern Concentration: focused Motor activity: normal Level of consciousness: alert Memory: Intact Sleep Symptoms: States did not sleep well due to pain Interaction: cooperative, calm Assessment and Plan - Psychiatric problem (1) Schizoaffective disorder, depressive type Current Visit: Yes Status: Acute plan to address problem: see below (2) PTSD (post-traumatic stress disorder) Current Visit: Yes Status: Acute plan to address problem: Due to the psychiatric conditions and treatment listed in the Assessment and Plan - the patient requires continued hospitalization. Will continue inpatient treatment to allow for medication adjustment and monitoring. Will continue q15 min safety checks. Will encourage the use of environmental modifications and non-pharmacologic approaches for the management of behavioral and psychological symptoms. Medication adjustment made today: No medication changes made today Will continue current psych medications Monitor for medication side effects. The patient will continue on medications for physical illnesses, and Hospitalist will closely monitor these Continue intensive physical and occupational therapies. Monitor patient's mood, sleep, appetite, and behavior closely. Encourage patient to participate in individual and group therapeutic sessions on the [place]. Will provide a safe and therapeutic environment for patient. Possible discharge 1 to 2 days Assessment and Plan - Patient Problems (1) Schizoaffective disorder, depressive type Current Visit: Yes Status: Acute (2) PTSD (post-traumatic stress disorder) Current Visit: Yes Status: Acute Medications and Allergies Allergies Allergy/AdvReac Type Severity Reaction Status Date / Time morphine Allergy Anaphylaxis Verified 07/07/19 12:44 Home Medications Medication Instructions Recorded Confirmed Last Taken Type Lisinopril [Zestril] 40 mg PO DAILY 01/17/17 07/11/19 01/15/17 History Nitroglycerin [Nitrostat] 0.4 mg SL Q5M 01/17/17 07/11/19 Unknown History Tizanidine HCl [Zanaflex] 4 mg PO TID PRN 01/17/17 07/11/19 01/15/17 History ALBUTEROL NEB's [Proventil 0.083% 2.5 mg IH Q6H PRN #100 nebu 01/21/17 07/11/19 Unknown Rx NEBS] Aspirin [Aspirin BABY CHEW TAB] 81 mg PO QDAY #100 tab.chew 01/21/17 07/11/19 Unknown Rx AtorvaSTATin [Lipitor] 20 mg PO QHS #30 tablet 01/21/17 07/11/19 Unknown Rx Carbidopa/Levodopa [Rytary ER 1 each PO TID #90 capsule.er 01/21/17 07/11/19 Unknown Rx 23.75 mg-95 mg Cap] Clopidogrel [Plavix] 75 mg PO QDAY #30 tablet 01/21/17 07/11/19 Unknown Rx Detemir (Nf) [Levemir (Nf)] 20 units SUB-Q QHS #5 pen 01/21/17 07/11/19 Unknown Rx FLUoxetine [PROzac] 20 mg PO QDAY #30 capsule 01/21/17 07/11/19 Unknown Rx Famotidine [Pepcid] 20 mg PO BID #60 tablet 01/21/17 07/11/19 Unknown Rx Gabapentin 300 mg PO Q8HR #90 capsule 01/21/17 07/11/19 Unknown Rx Lisinopril [Zestril TAB] 40 mg PO BID #30 tablet 01/21/17 07/11/19 Unknown Rx Metoprolol [Lopressor TAB] 12.5 mg PO DAILY #30 tablet 01/21/17 07/11/19 Unknown Rx Prednisone [predniSONE (Gregorio) ER 20 mg PO QDAY #8 tablet. 01/21/17 07/11/19 Unknown Rx TAB] carvediloL [Coreg] 12.5 mg PO BID #60 tablet 01/21/17 07/11/19 Unknown Rx levETIRAcetam [Keppra TAB] 1,000 mg PO BID #60 tablet 01/21/17 07/11/19 Unknown Rx levoFLOXacin [Levaquin] 750 mg PO QDAY #8 tablet 01/21/17 07/11/19 Unknown Rx metFORMIN [Glucophage] 500 mg PO BID #60 tablet 01/21/17 07/11/19 Unknown Rx Gabapentin [Neurontin] 600 mg PO TID #90 tablet 08/22/18 07/11/19 Unknown Rx Ondansetron (Nf) [Zofran TAB] 4 mg PO Q8HR PRN #20 tablet 08/22/18 07/11/19 Unknown Rx levETIRAcetam [Keppra TAB] 1,500 mg PO BID #60 tablet 08/22/18 07/11/19 Unknown Rx traMADoL [Ultram] 50 mg PO Q6HR PRN #20 tablet 08/22/18 07/11/19 Unknown Rx Active Meds: Active Medications Albuterol (Proventil) 2.5 mg IH Q6H PRN PRN Reason: Shortness Of Breath Aspirin (Baby Aspirin) 81 mg PO QDAY [facility] Last Admin: 07/12/19 09:42 Dose: 81 mg Documented by: Atorvastatin Calcium (Lipitor) 20 mg PO QHS [facility] Last Admin: 07/12/19 22:24 Dose: 20 mg Documented by: Carbidopa/Levodopa (Sinemet Er) 1 each PO TID [facility] Last Admin: 07/12/19 22:24 Dose: 1 each Documented by: Carvedilol (Coreg) 12.5 mg PO BID [facility] Last Admin: 07/12/19 22:26 Dose: 12.5 mg Documented by: Clopidogrel Bisulfate (Plavix) 75 mg PO QDAY [facility] Last Admin: 07/12/19 09:39 Dose: 75 mg Documented by: Famotidine (Pepcid) 20 mg PO BID [facility] Last Admin: 07/12/19 22:24 Dose: 20 mg Documented by: Gabapentin (Gabapentin) 300 mg PO Q8HR [facility] Last Admin: 07/13/19 05:55 Dose: 300 mg Documented by: Haloperidol (Haldol) 5 mg PO BID [facility] Last Admin: 07/12/19 22:24 Dose: 5 mg Documented by: Hydroxyzine Pamoate (Vistaril) 50 mg PO Q6H PRN PRN Reason: Anxiety Insulin Human Isoph/Insulin Regular (Humulin 70/30) 25 unit SUB-Q BIDDIAB [facility] Last Admin: 07/12/19 17:38 Dose: 25 unit Documented by: Insulin Human Lispro (Humalog) 0 unit SUB-Q [facility]; Protocol Last Admin: 07/13/19 08:57 Dose: Not Given Documented by: Levetiracetam (Keppra) 1,000 mg PO BID [facility] Last Admin: 07/12/19 22:24 Dose: 1,000 mg Documented by: Lisinopril (Zestril) 40 mg PO DAILY [facility] Last Admin: 07/12/19 09:40 Dose: 40 mg Documented by: Metformin HCl (Glucophage) 500 mg PO BIDDIAB [facility] Last Admin: 07/12/19 17:38 Dose: 500 mg Documented by: Metoprolol Tartrate (Metoprolol) 12.5 mg PO DAILY [facility] Last Admin: 07/12/19 09:41 Dose: 12.5 mg Documented by: Nicotine (Habitrol) 7 mg TD QDAY [facility] Last Admin: 07/12/19 09:39 Dose: 7 mg Documented by: Nitroglycerin (Nitrostat) 0.4 mg SL Q5M PRN PRN Reason: Chest Pain Prednisone (Deltasone) 20 mg PO QDAY [facility] Last Admin: 07/12/19 09:41 Dose: 20 mg Documented by: Sertraline HCl (Zoloft) 50 mg PO QDAY [facility] Last Admin: 07/12/19 11:39 Dose: 50 mg Documented by: Tizanidine HCl (Zanaflex) 4 mg PO Q8H PRN PRN Reason: Muscle Spasm Tramadol HCl (Ultram) 50 mg PO Q6H PRN PRN Reason: PAIN Last Admin: 07/12/19 17:38 Dose: 50 mg Documented by: Trazodone HCl (Desyrel) 50 mg PO QHS [facility] Last Admin: 07/12/19 22:24 Dose: 50 mg Documented by: Results - Results Labs/Vitals: Laboratory Last Values WBC 5.7 K/mm3 (4.5-11.0) 07/07/19 13:39 RBC 5.04 M/mm3 (3.65-5.03) H 07/07/19 13:39 Hgb 13.6 gm/dl (10.1-14.3) 07/07/19 13:39 Hct 42.0 % (30.3-42.9) 07/07/19 13:39 MCV 83 fl (79-97) 07/07/19 13:39 MCH 27 pg (28-32) L 07/07/19 13:39 MCHC 33 % (30-34) 07/07/19 13:39 RDW 16.4 % (13.2-15.2) H 07/07/19 13:39 Plt Count 236 K/mm3 (140-440) 07/07/19 13:39 Lymph % (Auto) 44.3 % (13.4-35.0) H 07/07/19 13:39 [place] % (Auto) 7.6 % (0.0-7.3) H 07/07/19 13:39 Eos % (Auto) 2.1 % (0.0-4.3) 07/07/19 13:39 Baso % (Auto) 0.8 % (0.0-1.8) 07/07/19 13:39 Lymph # 2.5 K/mm3 (1.2-5.4) 07/07/19 13:39 [place] # 0.4 K/mm3 (0.0-0.8) 07/07/19 13:39 Eos # 0.1 K/mm3 (0.0-0.4) 07/07/19 13:39 Baso # 0.0 K/mm3 (0.0-0.1) 07/07/19 13:39 Seg Neutrophils % 45.2 % (40.0-70.0) 07/07/19 13:39 Seg Neutrophils # 2.6 K/mm3 (1.8-7.7) 07/07/19 13:39 Sodium 131 mmol/L (137-145) L 07/07/19 13:39 Potassium 3.9 mmol/L (3.6-5.0) 07/07/19 13:39 Chloride 93.2 mmol/L (98-107) L 07/07/19 13:39 Carbon Dioxide 23 mmol/L (22-30) D 07/07/19 13:39 Anion Gap 19 mmol/L 07/07/19 13:39 BUN 20 mg/dL (7-17) H 07/07/19 13:39 Creatinine 0.9 mg/dL (0.7-1.2) 07/07/19 13:39 Estimated GFR > 60 ml/min 07/07/19 13:39 BUN/Creatinine Ratio 22 % 07/07/19 13:39 Glucose 535 mg/dL (65-100) H* 07/07/19 13:39 POC Glucose 67 (70-105) L 07/13/19 08:00 Hemoglobin A1c 11.3 % (4-6) H 07/07/19 13:39 Calcium 9.3 mg/dL (8.4-10.2) 07/07/19 13:39 Total Bilirubin < 0.20 mg/dL (0.1-1.2) 07/07/19 13:39 AST 10 units/L (5-40) 07/07/19 13:39 ALT 7 units/L (7-56) 07/07/19 13:39 Alkaline Phosphatase 100 units/L (35-129) 07/07/19 13:39 Total Protein 7.1 g/dL (6.3-8.2) 07/07/19 13:39 Albumin 3.8 g/dL (3.9-5) L 07/07/19 13:39 Albumin/Globulin Ratio 1.2 % 07/07/19 13:39 Triglycerides 193 mg/dL (2-149) H 07/07/19 13:39 Cholesterol 222 mg/dL (50-199) H 07/07/19 13:39 LDL Cholesterol Direct 161 mg/dL (50-130) H 07/07/19 13:39 HDL Cholesterol 45 mg/dL (40-59) 07/07/19 13:39 Cholesterol/HDL Ratio 4.93 % 07/07/19 13:39 Last Vital Signs Temp 98.7 F 07/12/19 20:47 Pulse 72 07/12/19 19:42 Resp 18 07/12/19 08:35 BP 123/66 07/12/19 19:42 Pulse Ox 95 12/14/19 20:47
[2019-07-13] MEDS: INSULIN NPH/REGULAR 70/30 INJ SUB-Q SCH ×2 (10:58→17:37)
[2019-07-13] MEDS: NICOTINE 7 MG/24 HR PATCH TD SCH (10:59)
[2019-07-13] MEDS: LISINOPRIL 40 MG TAB PO SCH (11:00)
[2019-07-13] MEDS: FAMOTIDINE 20 MG TAB PO SCH ×2 (11:00→21:52)
[2019-07-13] MEDS: levETIRAcetam 500 MG TAB PO SCH ×2 (11:00→21:51)
[2019-07-13] MEDS: CLOPIDOGREL 75 MG TAB PO SCH (11:00)
[2019-07-13] MEDS: carvediloL 12.5 MG TAB PO SCH ×2 (11:01→21:51)
[2019-07-13] MEDS: CARBIDOPA PO SCH ×3 (11:01→21:51)
[2019-07-13] MEDS: LEVODOPA PO SCH ×3 (11:01→21:51)
[2019-07-13] MEDS: metFORMIN 500 MG TAB PO SCH ×2 (11:02→17:36)
[2019-07-13] MEDS: SERTRALINE 50 MG TAB PO SCH (11:02)
[2019-07-13] MEDS: HALOPERIDOL 5 MG TAB PO SCH ×2 (11:02→21:52)
[2019-07-13] MEDS: predniSONE 20 MG TAB PO SCH (11:02)
[2019-07-13] MEDS: ASPIRIN 81 MG TAB CHEW PO SCH (11:03)
[2019-07-13] MEDS: METOPROLOL TARTRATE 25 MG TAB PO SCH (11:03)
[2019-07-13] MEDS: traMADol 50 MG TAB PO PRN (21:50)
[2019-07-13] MEDS: traZODone 50 MG TAB PO SCH (21:55)
[2019-07-14] MEDS: INSULIN LISPRO 100 UNIT/ML SUB-Q SCH ×2 (07:36→12:21)
[2019-07-14] MEDS: metFORMIN 500 MG TAB PO SCH (08:07)
[2019-07-14] MEDS: LEVODOPA PO SCH ×2 (08:07→13:26)
[2019-07-14] MEDS: CARBIDOPA PO SCH ×2 (08:07→13:26)
[2019-07-14] MEDS: GABAPENTIN 300 MG CAP PO SCH ×2 (08:07→13:26)
--- NOTE | 2019-07-14 09:40 | Discharge Summary ---
<ARPITA VITALE - Last Filed: 07/14/19 09:42> Providers - Providers Date of Admission: 07/07/19 12:54 Date of discharge: 07/14/19 Attending physician: BERNA MENDIOLA MD 07/07/19 10:44 Consult to Physician [CONS] Routine Comment: Consulting Provider: RUIZ CLEMENTE Physician Instructions: Reason For Exam: Medical management of Geripsych Patient Primary care physician: LAMINATOR Hospitalization Reason for admission: Suicidal Ideations Admitting Diagnosis: F25.1 - SCHIZOAFFECTIVE DISORDER, DEPRESSIVE TYPE Condition: Stable Hospital course: The patient was provided inpatient psychiatric treatment with safe and supportive environment, group/individual therapy, psychiatric medication, medication adjustment, adverse effect monitor, medical evaluation, medical treatment, social service assessment, social support meeting, placement assessment and psycho-education. The patients mood, cognition, behavior, motivation, compliance to treatment and appreciation on family/social support are improved and stabilized. At the time of discharge, the patient had no suicidal ideas, no homicidal ideas, no aggressive thoughts, no endangering behavior and no debilitating adverse effects. The patient agreed on the treatment plan, understood the risk, benefit, alternative treatment, potential consequence of no treatment, and gave informed consent. Disposition: DC-01 TO HOME OR SELFCARE Time spent for discharge: 35 minutes Allergies/Adverse Reactions: Allergies morphine Allergy (Verified 07/07/19 12:44) Anaphylaxis Vital Signs: Last Vital Signs Temp 98.7 F 07/12/19 20:47 Pulse 66 07/13/19 21:51 Resp 18 07/13/19 21:50 BP 101/57 07/13/19 21:51 Pulse Ox 95 07/12/19 20:47 Last Lab: Laboratory Last Values WBC 5.7 K/mm3 (4.5-11.0) 07/07/19 13:39 RBC 5.04 M/mm3 (3.65-5.03) H 07/07/19 13:39 Hgb 13.6 gm/dl (10.1-14.3) 07/07/19 13:39 Hct 42.0 % (30.3-42.9) 07/07/19 13:39 MCV 83 fl (79-97) 07/07/19 13:39 MCH 27 pg (28-32) L 07/07/19 13:39 MCHC 33 % (30-34) 07/07/19 13:39 RDW 16.4 % (13.2-15.2) H 07/07/19 13:39 Plt Count 236 K/mm3 (140-440) 07/07/19 13:39 Lymph % (Auto) 44.3 % (13.4-35.0) H 07/07/19 13:39 [place] % (Auto) 7.6 % (0.0-7.3) H 07/07/19 13:39 Eos % (Auto) 2.1 % (0.0-4.3) 07/07/19 13:39 Baso % (Auto) 0.8 % (0.0-1.8) 07/07/19 13:39 Lymph # 2.5 K/mm3 (1.2-5.4) 07/07/19 13:39 [place] # 0.4 K/mm3 (0.0-0.8) 07/07/19 13:39 Eos # 0.1 K/mm3 (0.0-0.4) 07/07/19 13:39 Baso # 0.0 K/mm3 (0.0-0.1) 07/07/19 13:39 Seg Neutrophils % 45.2 % (40.0-70.0) 07/07/19 13:39 Seg Neutrophils # 2.6 K/mm3 (1.8-7.7) 07/07/19 13:39 Sodium 131 mmol/L (137-145) L 07/07/19 13:39 Potassium 3.9 mmol/L (3.6-5.0) 07/07/19 13:39 Chloride 93.2 mmol/L (98-107) L 07/07/19 13:39 Carbon Dioxide 23 mmol/L (22-30) D 07/07/19 13:39 Anion Gap 19 mmol/L 07/07/19 13:39 BUN 20 mg/dL (7-17) H 07/07/19 13:39 Creatinine 0.9 mg/dL (0.7-1.2) 07/07/19 13:39 Estimated GFR > 60 ml/min 07/07/19 13:39 BUN/Creatinine Ratio 22 % 07/07/19 13:39 Glucose 535 mg/dL (65-100) H* 07/07/19 13:39 POC Glucose 89 (70-105) 07/14/19 06:40 Hemoglobin A1c 11.3 % (4-6) H 07/07/19 13:39 Calcium 9.3 mg/dL (8.4-10.2) 07/07/19 13:39 Total Bilirubin < 0.20 mg/dL (0.1-1.2) 07/07/19 13:39 AST 10 units/L (5-40) 07/07/19 13:39 ALT 7 units/L (7-56) 07/07/19 13:39 Alkaline Phosphatase 100 units/L (35-129) 07/07/19 13:39 Total Protein 7.1 g/dL (6.3-8.2) 07/07/19 13:39 Albumin 3.8 g/dL (3.9-5) L 07/07/19 13:39 Albumin/Globulin Ratio 1.2 % 07/07/19 13:39 Triglycerides 193 mg/dL (2-149) H 07/07/19 13:39 Cholesterol 222 mg/dL (50-199) H 07/07/19 13:39 LDL Cholesterol Direct 161 mg/dL (50-130) H 07/07/19 13:39 HDL Cholesterol 45 mg/dL (40-59) 07/07/19 13:39 Cholesterol/HDL Ratio 4.93 % 07/07/19 13:39 - Discharge Diagnoses (1) Schizoaffective disorder, depressive type Status: Acute (2) PTSD (post-traumatic stress disorder) Status: Acute Core Measure Documentation - Palliative Care Palliative Care/ Comfort Measures: Not Applicable - Core Measures Any of the following diagnoses?: none Exam - Constitutional Vitals: Temp Pulse Resp BP Pulse Ox 98.7 F 66 18 101/57 95 07/12/19 20:47 07/13/19 21:51 07/13/19 21:50 07/13/19 21:51 07/12/19 20:47 General appearance: Present: no acute distress, well-nourished - EENT Eyes: Present: PERRL, EOM intact ENT: hearing intact, clear oral mucosa - Neck Neck: Present: supple, normal ROM - Respiratory Respiratory effort: normal Plan Activity: advance as tolerated Weight Bearing Status: Weight Bear as Tolerated Care Plan Goals: Maintain good and stable mental health Plan of Treatment: The patient should be compliant with medications, not to use drugs and not to drink alcohol. The patient understands that if suicidal ideas, homicidal ideas, or any endangering thoughts arise, the patient should immediately seek for emergent assistance including but not limited to crisis hot line and emergency room. Follow up with outpatient Psychiatrist and PCP within 7 - 14 days of discharge. Health Concerns: PTSD, CAD, Major depression Assessment: Schizoaffective Affective Disorder, Depressive Type Follow up with: PRIMARY CARE, [Primary Care Provider] - 7 Days Prescriptions: Haloperidol [Haldol] 5 mg PO BID #60 tablet FLUoxetine [PROzac] 20 mg PO QDAY #30 capsule <BERNA MENDIOLA - Last Filed: 07/14/19 10:46> Providers - Providers Date of Admission: 07/07/19 12:54 Attending physician: BERNA MENDIOLA MD 07/07/19 10:44 Consult to Physician [CONS] Routine Comment: Consulting Provider: RUIZ CLEMENTE Physician Instructions: Reason For Exam: Medical management of Geripsych Patient Primary care physician: LAMINATOR Hospitalization Vital Signs: Last Vital Signs Temp 98 F 07/14/19 09:50 Pulse 64 07/14/19 09:45 Resp 18 07/13/19 21:50 BP 109/74 07/14/19 09:45 Pulse Ox 100 07/14/19 09:33 Last Lab: Laboratory Last Values WBC 5.7 K/mm3 (4.5-11.0) 07/07/19 13:39 RBC 5.04 M/mm3 (3.65-5.03) H 07/07/19 13:39 Hgb 13.6 gm/dl (10.1-14.3) 07/07/19 13:39 Hct 42.0 % (30.3-42.9) 07/07/19 13:39 MCV 83 fl (79-97) 07/07/19 13:39 MCH 27 pg (28-32) L 07/07/19 13:39 MCHC 33 % (30-34) 07/07/19 13:39 RDW 16.4 % (13.2-15.2) H 07/07/19 13:39 Plt Count 236 K/mm3 (140-440) 07/07/19 13:39 Lymph % (Auto) 44.3 % (13.4-35.0) H 07/07/19 13:39 [place] % (Auto) 7.6 % (0.0-7.3) H 07/07/19 13:39 Eos % (Auto) 2.1 % (0.0-4.3) 07/07/19 13:39 Baso % (Auto) 0.8 % (0.0-1.8) 07/07/19 13:39 Lymph # 2.5 K/mm3 (1.2-5.4) 07/07/19 13:39 [place] # 0.4 K/mm3 (0.0-0.8) 07/07/19 13:39 Eos # 0.1 K/mm3 (0.0-0.4) 07/07/19 13:39 Baso # 0.0 K/mm3 (0.0-0.1) 07/07/19 13:39 Seg Neutrophils % 45.2 % (40.0-70.0) 07/07/19 13:39 Seg Neutrophils # 2.6 K/mm3 (1.8-7.7) 07/07/19 13:39 Sodium 131 mmol/L (137-145) L 07/07/19 13:39 Potassium 3.9 mmol/L (3.6-5.0) 07/07/19 13:39 Chloride 93.2 mmol/L (98-107) L 07/07/19 13:39 Carbon Dioxide 23 mmol/L (22-30) D 07/07/19 13:39 Anion Gap 19 mmol/L 07/07/19 13:39 BUN 20 mg/dL (7-17) H 07/07/19 13:39 Creatinine 0.9 mg/dL (0.7-1.2) 07/07/19 13:39 Estimated GFR > 60 ml/min 07/07/19 13:39 BUN/Creatinine Ratio 22 % 07/07/19 13:39 Glucose 535 mg/dL (65-100) H* 07/07/19 13:39 POC Glucose 89 (70-105) 07/14/19 06:40 Hemoglobin A1c 11.3 % (4-6) H 07/07/19 13:39 Calcium 9.3 mg/dL (8.4-10.2) 07/07/19 13:39 Total Bilirubin < 0.20 mg/dL (0.1-1.2) 07/07/19 13:39 AST 10 units/L (5-40) 07/07/19 13:39 ALT 7 units/L (7-56) 07/07/19 13:39 Alkaline Phosphatase 100 units/L (35-129) 07/07/19 13:39 Total Protein 7.1 g/dL (6.3-8.2) 07/07/19 13:39 Albumin 3.8 g/dL (3.9-5) L 07/07/19 13:39 Albumin/Globulin Ratio 1.2 % 07/07/19 13:39 Triglycerides 193 mg/dL (2-149) H 07/07/19 13:39 Cholesterol 222 mg/dL (50-199) H 07/07/19 13:39 LDL Cholesterol Direct 161 mg/dL (50-130) H 07/07/19 13:39 HDL Cholesterol 45 mg/dL (40-59) 07/07/19 13:39 Cholesterol/HDL Ratio 4.93 % 07/07/19 13:39 - Discharge Diagnoses (1) Schizoaffective disorder, depressive type Status: Acute (2) PTSD (post-traumatic stress disorder) Status: Acute Exam - Constitutional Vitals: Temp Pulse Resp BP Pulse Ox 98 F 64 18 109/74 100 07/14/19 09:50 07/14/19 09:45 07/13/19 21:50 07/14/19 09:45 07/14/19 09:33
[2019-07-14] MEDS: levETIRAcetam 500 MG TAB PO SCH (09:43)
[2019-07-14] MEDS: FAMOTIDINE 20 MG TAB PO SCH (09:44)
[2019-07-14] MEDS: SERTRALINE 50 MG TAB PO SCH (09:44)
[2019-07-14] MEDS: HALOPERIDOL 5 MG TAB PO SCH (09:44)
[2019-07-14] MEDS: METOPROLOL TARTRATE 25 MG TAB PO SCH (09:44)
[2019-07-14] MEDS: CLOPIDOGREL 75 MG TAB PO SCH (09:44)
[2019-07-14] MEDS: ASPIRIN 81 MG TAB CHEW PO SCH (09:44)
[2019-07-14] MEDS: LISINOPRIL 40 MG TAB PO SCH (09:45)
[2019-07-14] MEDS: carvediloL 12.5 MG TAB PO SCH (09:45)
[2019-07-14] MEDS: predniSONE 20 MG TAB PO SCH (09:45)
[2019-07-14] MEDS: NICOTINE 7 MG/24 HR PATCH TD SCH (09:45)
[2019-07-14] MEDS: INSULIN NPH/REGULAR 70/30 INJ SUB-Q SCH (09:46)
[2019-07-14 09:48] VITALS: BP 109/74
[2019-07-14] MEDS: traMADol 50 MG TAB PO PRN (10:06)
== END 2019-07-14 13:48 | disposition home or self-care (01) | DRG 885 ==
LOC: 3A 10:09 → UNDOADMIN 10:09 → MERGE 10:13 → 5A 12:54
PROVIDERS: ADMIT Psychiatry & Neurology Psychiatry; ATTEND Psychiatry & Neurology Psychiatry
DX: F25.1 Schizoaffective disorder, depressive type (principal); I10 Essential (primary) hypertension; G20 Parkinson's disease; E78.2 Mixed hyperlipidemia; G40.909 Epilepsy, unspecified, not intractable, without status epilepticus; E11.42 Type 2 diabetes mellitus with diabetic polyneuropathy; F17.210 Nicotine dependence, cigarettes, uncomplicated; I25.10 Atherosclerotic heart disease of native coronary artery without angina pectoris; F43.10 Post-traumatic stress disorder, unspecified; Z82.49 Family history of ischemic heart disease and other diseases of the circulatory system; Z88.5 Allergy status to narcotic agent; Z79.899 Other long term (current) drug therapy; Z79.51 Long term (current) use of inhaled steroids; Z79.82 Long term (current) use of aspirin; Z79.84 Long term (current) use of oral hypoglycemic drugs
CPT/HCPCS: 36415; 71045; 80053; 80061; 80307; 81001; 82962; 83036; 84484; 85025; 85379; 85610; 85730; 93005; 93010; 96372; G0378; A9270-GY; J1630; J1815; J3486; J7512; Q0177

== ENCOUNTER 2019-07-25 10:33 | Emergency (ER) | payer MEDICARE ==
[2019-07-25 10:42] VITALS: BP 140/70
[2019-07-25] MEDS ORDERED: ONDANSETRON 4 MG ODT TAB PO ONE (12:50)
[2019-07-25] MEDS ORDERED: HYDROcodone/ACETAMINOPHEN 10-325MG TAB PO ONE (12:50)
--- NOTE | 2019-07-25 13:36 | Emergency Department Report ---
ED General Adult HPI - General Chief complaint: Extremity Injury, Lower Stated complaint: RT ANKLE INJURY Time Seen by Provider: 07/25/19 12:23 Source: patient Mode of arrival: Wheelchair Limitations: No Limitations - History of Present Illness Initial comments: The patient presents to the emergency department with a chief complaint of right ankle pain. Patient states that she was walking and rolled her ankle. Patient denies any other injury. Patient's describes the pain as sharp in nature. Movement makes it worse. -: Sudden Location: lower extremity Radiation: non-radiation Severity scale (0 -10): 8 Quality: sharp Consistency: constant Improves with: rest Worsens with: movement Associated Symptoms: denies other symptoms Treatments Prior to Arrival: none - Related Data Home Medications Medication Instructions Recorded Confirmed Last Taken Lisinopril [Zestril] 40 mg PO DAILY 01/17/17 07/11/19 01/15/17 Nitroglycerin [Nitrostat] 0.4 mg SL Q5M 01/17/17 07/11/19 Unknown Tizanidine HCl [Zanaflex] 4 mg PO TID PRN 01/17/17 07/11/19 01/15/17 Previous Rx's Medication Instructions Recorded Last Taken Type ALBUTEROL NEB's [Proventil 0.083% 2.5 mg IH Q6H PRN #100 nebu 01/21/17 Unknown Rx NEBS] Aspirin [Aspirin BABY CHEW TAB] 81 mg PO QDAY #100 tab.chew 01/21/17 Unknown Rx AtorvaSTATin [Lipitor] 20 mg PO QHS #30 tablet 01/21/17 Unknown Rx Carbidopa/Levodopa [Rytary ER 1 each PO TID #90 capsule.er 01/21/17 Unknown Rx 23.75 mg-95 mg Cap] Clopidogrel [Plavix] 75 mg PO QDAY #30 tablet 01/21/17 Unknown Rx Detemir (Nf) [Levemir (Nf)] 20 units SUB-Q QHS #5 pen 01/21/17 Unknown Rx Famotidine [Pepcid] 20 mg PO BID #60 tablet 01/21/17 Unknown Rx Gabapentin 300 mg PO Q8HR #90 capsule 01/21/17 Unknown Rx Metoprolol [Lopressor TAB] 12.5 mg PO DAILY #30 tablet 01/21/17 Unknown Rx Prednisone [predniSONE (Gregorio) ER 20 mg PO QDAY #8 tablet. 01/21/17 Unknown Rx TAB] carvediloL [Coreg] 12.5 mg PO BID #60 tablet 01/21/17 Unknown Rx levETIRAcetam [Keppra TAB] 1,000 mg PO BID #60 tablet 01/21/17 Unknown Rx lisinopriL [Zestril TAB] 40 mg PO BID #30 tablet 01/21/17 Unknown Rx metFORMIN [Glucophage] 500 mg PO BID #60 tablet 01/21/17 Unknown Rx Gabapentin [Neurontin] 600 mg PO TID #90 tablet 08/22/18 Unknown Rx Ondansetron (Nf) [Zofran TAB] 4 mg PO Q8HR PRN #20 tablet 08/22/18 Unknown Rx levETIRAcetam [Keppra TAB] 1,500 mg PO BID #60 tablet 08/22/18 Unknown Rx traMADoL [Ultram 50 MG tab] 50 mg PO Q6HR PRN #20 tablet 08/22/18 Unknown Rx FLUoxetine [PROzac] 20 mg PO QDAY #30 capsule 07/14/19 Unknown Rx haloperidoL [Haldol] 5 mg PO BID #60 tablet 07/14/19 Unknown Rx Ibuprofen [Motrin] 800 mg PO Q8HR PRN #30 tablet 07/25/19 Unknown Rx Allergies Allergy/AdvReac Type Severity Reaction Status Date / Time morphine Allergy Anaphylaxis Verified 07/07/19 12:44 ED Review of Systems ROS: Stated complaint: RT ANKLE INJURY Other details as noted in HPI Comment: All other systems reviewed and negative Constitutional: denies: chills, fever Eyes: denies: eye pain, eye discharge, vision change ENT: denies: ear pain, throat pain Respiratory: denies: cough, shortness of breath, wheezing Cardiovascular: denies: chest pain, palpitations Endocrine: no symptoms reported Gastrointestinal: denies: abdominal pain, nausea, diarrhea Genitourinary: denies: urgency, dysuria, discharge Musculoskeletal: denies: back pain, joint swelling, arthralgia Skin: denies: rash, lesions Neurological: denies: headache, weakness, paresthesias Psychiatric: denies: anxiety, depression Hematological/Lymphatic: denies: easy bleeding, easy bruising ED Past Medical Hx - Past Medical History Previous Medical History?: Yes Hx Hypertension: Yes Hx Congestive Heart Failure: No Hx Diabetes: Yes Hx Renal Disease: No Hx Arthritis: Yes Hx Seizures: Yes (last unknown) Hx Psychiatric Treatment: Yes (schizo, bipolar, anxity, PTSD, depression) Hx Asthma: No Hx COPD: No Hx Dementia: No Additional medical history: CAD. NEUROPATHY - Surgical History Past Surgical History?: Yes Hx Cholecystectomy: No Hx Appendectomy: No Additional Surgical History: STENT TO RT GROIN. UNCLOT ARTERY TO RT NECK - Social History Smoking Status: Current Every Day Smoker Substance Use Type: None - Medications Home Medications: Home Medications Medication Instructions Recorded Confirmed Last Taken Type Lisinopril [Zestril] 40 mg PO DAILY 01/17/17 07/11/19 01/15/17 History Nitroglycerin [Nitrostat] 0.4 mg SL Q5M 01/17/17 07/11/19 Unknown History Tizanidine HCl [Zanaflex] 4 mg PO TID PRN 01/17/17 07/11/19 01/15/17 History ALBUTEROL NEB's [Proventil 0.083% 2.5 mg IH Q6H PRN #100 nebu 01/21/17 07/11/19 Unknown Rx NEBS] Aspirin [Aspirin BABY CHEW TAB] 81 mg PO QDAY #100 tab.chew 01/21/17 07/11/19 Unknown Rx AtorvaSTATin [Lipitor] 20 mg PO QHS #30 tablet 01/21/17 07/11/19 Unknown Rx Carbidopa/Levodopa [Rytary ER 1 each PO TID #90 capsule.er 01/21/17 07/11/19 Unknown Rx 23.75 mg-95 mg Cap] Clopidogrel [Plavix] 75 mg PO QDAY #30 tablet 01/21/17 07/11/19 Unknown Rx Detemir (Nf) [Levemir (Nf)] 20 units SUB-Q QHS #5 pen 01/21/17 07/11/19 Unknown Rx Famotidine [Pepcid] 20 mg PO BID #60 tablet 01/21/17 07/11/19 Unknown Rx Gabapentin 300 mg PO Q8HR #90 capsule 01/21/17 07/11/19 Unknown Rx Metoprolol [Lopressor TAB] 12.5 mg PO DAILY #30 tablet 01/21/17 07/11/19 Unknown Rx Prednisone [predniSONE (Gregorio) ER 20 mg PO QDAY #8 tablet. 01/21/17 07/11/19 Unknown Rx TAB] carvediloL [Coreg] 12.5 mg PO BID #60 tablet 01/21/17 07/11/19 Unknown Rx levETIRAcetam [Keppra TAB] 1,000 mg PO BID #60 tablet 01/21/17 07/11/19 Unknown Rx lisinopriL [Zestril TAB] 40 mg PO BID #30 tablet 01/21/17 07/11/19 Unknown Rx metFORMIN [Glucophage] 500 mg PO BID #60 tablet 01/21/17 07/11/19 Unknown Rx Gabapentin [Neurontin] 600 mg PO TID #90 tablet 08/22/18 07/11/19 Unknown Rx Ondansetron (Nf) [Zofran TAB] 4 mg PO Q8HR PRN #20 tablet 08/22/18 07/11/19 Unknown Rx levETIRAcetam [Keppra TAB] 1,500 mg PO BID #60 tablet 08/22/18 07/11/19 Unknown Rx traMADoL [Ultram 50 MG tab] 50 mg PO Q6HR PRN #20 tablet 08/22/18 07/11/19 Unknown Rx FLUoxetine [PROzac] 20 mg PO QDAY #30 capsule 07/14/19 Unknown Rx haloperidoL [Haldol] 5 mg PO BID #60 tablet 07/14/19 Unknown Rx Ibuprofen [Motrin] 800 mg PO Q8HR PRN #30 tablet 07/25/19 Unknown Rx ED Physical Exam - General Limitations: No Limitations General appearance: alert, in no apparent distress - Head Head exam: Present: atraumatic, normocephalic - Eye Eye exam: Present: normal appearance - ENT ENT exam: Present: mucous membranes moist - Neck Neck exam: Present: normal inspection - Respiratory Respiratory exam: Present: normal lung sounds bilaterally. Absent: respiratory distress - Cardiovascular Cardiovascular Exam: Present: regular rate, normal rhythm. Absent: systolic murmur, diastolic murmur, rubs, gallop - Extremities Exam Extremities exam: Present: other (there is tenderness to palpation of the lateral and medial malleolus of the right ankle) - Back Exam Back exam: Present: normal inspection - Neurological Exam Neurological exam: Present: alert, oriented X3 - Psychiatric Psychiatric exam: Present: normal affect, normal mood - Skin Skin exam: Present: warm, dry, intact, normal color. Absent: rash ED Course Vital Signs 07/25/19 10:39 Temperature 98.8 F Pulse Rate 72 Respiratory 18 Rate Blood Pressure 140/70 Blood Pressure 140/70 [Right] O2 Sat by Pulse 100 Oximetry ED Medical Decision Making - Radiology Data Radiology results: report reviewed - Medical Decision Making Plan of care discussed with patient Critical care attestation.: If time is entered above; I have spent that time in minutes in the direct care of this critically ill patient, excluding procedure time. ED Disposition Clinical Impression: Ankle sprain Disposition: - TO HOME OR SELFCARE Is pt being admited?: No Does the pt Need Aspirin: No Condition: Stable Additional Instructions: return if worse Referrals: [facility] [Provider Group] - 3-5 Days [facility] [Provider Group] - 3-5 Days Time of Disposition: 13:44
--- NOTE | 2019-07-25 13:37 | XRay Report ---
RIGHT ANKLE 3 VIEW(S) INDICATION / CLINICAL INFORMATION: fall COMPARISON: None available. FINDINGS: BONES / JOINT(S): No acute fracture or subluxation. Degenerative subchondral cystic change in the med ial talar dome. 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 Mild to moderate talonavicular an d naviculocuneiform degenerative arthrosis. Mildly prominent plantar calcaneal heel spur. SOFT TISSUES: No significant abnormality. ADDITIONAL FINDINGS: None. Signer Name: Jose Alejandro Ivan MD Signed: 07/25/2019 1:32 PM Workstation Name: [id number]
== END 2019-07-25 13:52 | disposition home or self-care (01) ==
LOC: ED 10:33
DX: S93.401A Sprain of unspecified ligament of right ankle, initial encounter (principal); I10 Essential (primary) hypertension; E11.9 Type 2 diabetes mellitus without complications; M19.90 Unspecified osteoarthritis, unspecified site; F20.89 Other schizophrenia; F32.89 Other specified depressive episodes; F17.200 Nicotine dependence, unspecified, uncomplicated; Z79.899 Other long term (current) drug therapy; Z88.6 Allergy status to analgesic agent; X58.XXXA Exposure to other specified factors, initial encounter; Y93.89 Activity, other specified; Y92.89 Other specified places as the place of occurrence of the external cause; Y99.8 Other external cause status
CPT/HCPCS: Q0162